=== PATIENT | male | born 1965 | race Caucasian/White ===

== ENCOUNTER 2018-02-14 18:15 | Emergency (ER) | payer OTHER, SELFPAY ==
[2018-02-14 18:16] VITALS: BP 157/108; PULSE 86; RESP 14; TEMP 36.4; BMI 38.9
[2018-02-14 19:13] LABS: Absolute Lymphocyte Count 2.13 X10^3/ul (0.83-4.51); Absolute Neutrophil Count 7.1 X10^3/uL (2.0-7.7); Basophil# 0.04 X10^3/uL; Basophil% 0.4 % (0-1); Eosinophil# 1.44 X10^3/uL; Eosinophils% 12.7 % (0-5); Hematocrit 46.5 % (40-54); Hemoglobin 16.2 g/dl (13.0-16.5); Lymphocyte # 2.13 X10^3/ul (4.0); Lymphocyte % 18.8 % (19-41); Mean Corp Hgb Conc 34.8 g/gl (32-36); Mean Corpuscular Hgb 30.7 pg (27.0-32.0); Mean Corpuscular Volume 88.1 fL (80-94); Mean Platelet Vol. 11.4 fl (6.2-12.0); Monocyte# 0.63 X10^3/uL; Monocyte% 5.6 % (0-10); Neutrophil # 7.05 X10^3/uL (2.7-7.7); Neutrophil % 62.3 % (47-70); Platelet Count 184 K/mm3 (150-450); RBC Distribution Width CV 11.8 % (11.6-14.6); RBC Distribution Width SD 37.3 fl (35.1-43.9); Red Blood Count 5.28 M/mm3 (4.6-6.2); White Blood Count 11.3 K/mm3 (4.4-11.0)
[2018-02-14 19:15] LABS: POSITIVE COUNT NO; POSITIVE DIFFERENTIAL NO; POSITIVE MORPHOLOGY NO
[2018-02-14 19:20] LABS: Anion Gap 7 (5-15); BUN 11 mg/dL (7-18); BUN/Creat Ratio 9.9 RATIO (10-20); Calcium,Total 8.5 mg/dL (8.5-10.1); Chloride 107 mmol/L (98-107); Creatinine, Serum 1.11 mg/dL (0.70-1.30); EST Glomerular Filtration Rate 74 mL/min (>60); Est Glom Filt Rate - Afr Amer 90 mL/min (>60); Estimated Creatinine Clearance 74.44 ml/min; Glucose 129 mg/dL (74-106); Potassium 3.8 mmol/L (3.5-5.1); Sodium Level 139 mmol/L (136-145)
--- NOTE | 2018-02-14 20:15 | ED.VISSUMM ---
- ER Visit Summary Date of Service: 02/14/18 Chief Complaint: Rash History of Present Illness: The patient is a 52 M who presents with rash. Initially started on extremities. He now has rash on his anterior left chest. The rash is not pruritic. It is red. He states the rash on his forearm is very warm. He denies fever, chills night sweats. He denies ocular, visual auditory symptoms. He denies any cardiac or respiratory symptoms. He denies nausea vomiting or diarrhea. He denies any urologic symptoms. Denies myalgias arthralgias. He denies any exposures or tick bite. He states he has not been in a hot tub recently. Physical Examination: Blood pressure elevated 157/108. He is afebrile. Patient has a erythematous indurated warm rash volar surface left forearm. There is also evidence of folliculitis right upper extremity with patchy rash as well that is erythematous warm and indurated. There is no discharge or drainage noted. There is no fluctuance. There is no epitrochlear extra lymphadenopathy. There is an erythematous rash noted over the left pectoral region. Lower extremity exam is remarkable folliculitis. Test Results: White count is slightly elevated 11.3 thousand. There is no shift or bandemia. Electronic panel is unremarkable. Emergency Department Course and Treatment: To evaluate patient's rash CBC BMP was obtained. He was treated with 3.0 g of Unasyn. Treatment Plan: Prescription for clindamycin 300 mg 4 times daily ?7 days. Disposition: Discharged to home Impression: 1. Cellulitis left forearm 2. Folliculitis This note was generated with [employer] dictation software. It may contain incorrect words, spelling, and punctuation that were not noted in review of the chart prior to signing ED Disposition - Plan for ED Patient: Disposition: Home or Assisted Living Chief Complaint: Rash Instructions: ED Infec Skin Cellulitis, ED Folliculitis Prescriptions: Clindamycin HCl 300 mg PO 4X/DAY #30 cap Referrals: Constantino Chavez MD [Primary Care Provider] - 2 Days for wound check
[2018-02-14 20:29] VITALS: PULSE 95; RESP 16; O2SAT 98
== END 2018-02-14 20:31 | disposition home or self-care (01) ==
PROVIDERS: Emergency Provider Emergency Medicine; Family Provider Family Medicine; PCP Family Medicine
DX: L03.114 Cellulitis of left upper limb (principal); L73.9 Follicular disorder, unspecified
CPT/HCPCS: 80048; 85025; 99283; A4216; J0295

== ENCOUNTER → 2019-02-16 | Outpatient (CLI) | payer OTHER, SELFPAY ==
--- NOTE | 2019-02-16 11:25 | RAD_ITS ---
STUDY: X-RAY - RIGHT KNEE REASON FOR EXAM: Male, 53 years old. Pain TECHNIQUE: 4 view(s) of the knee. COMPARISON: None. FINDINGS: Normal visualized distal femur. Normal visualized proximal tibia and fibula. Normal proximal tibiofibular articulation. Mild degenerative spurring at the medial femorotibial compartment. Normal lateral femorotibial compartment. Mild degenerative spurring at the patellofemoral articulation. Trace suprapatellar effusion. The soft tissue structures are unremarkable. RAD/Knee 4 or More Views IMPRESSION: Mild degenerative changes of the knee. Electronically Signed: Ye Melvin DO at 23:57 EDT Tel [phone], Service support ,
--- NOTE | 2019-02-16 11:26 | RAD_ITS ---
STUDY: X-RAY - RIGHT WRIST REASON FOR EXAM: Male, 53 years old. Pain TECHNIQUE: 3 view(s) of the wrist were obtained. COMPARISON: None. FINDINGS: Normal visualized distal radius and ulna. Normal radiocarpal articulation. Normal distal radioulnar articulation. Normal carpal bones. Normal carpal articulations. Normal carpometacarpal articulation of the thumb. Normal second through fifth carpometacarpal articulations. Normal visualized metacarpal bones. The soft tissue structures are unremarkable. RAD/Wrist min 3 Views IMPRESSION: Normal x-ray examination of the wrist. Electronically Signed: Ye Melvin DO at 23:52 EDT Tel [phone], Service support ,
== END | disposition home or self-care (01) ==
LOC: MTRAD 11:23
PROVIDERS: Family Provider Family Medicine; PCP Family Medicine; Referring Provider Family Medicine; Visit Provider Family Medicine
DX: M25.531 Pain in right wrist (principal); M25.561 Pain in right knee
CPT/HCPCS: 73110; 73564

== ENCOUNTER → 2020-04-05 | Outpatient (CLI) | payer OTHER, SELFPAY | END | disposition home or self-care (01) | LOC: MFPLAB 15:47 | PROVIDERS: PCP Family Medicine; Referring Provider Family Medicine; Visit Provider Family Medicine | DX: Z00.00 Encounter for general adult medical examination without abnormal findings (principal) ==

== ENCOUNTER → 2020-11-14 15:58 | Outpatient (CLI) | payer OTHER, SELFPAY ==
[2020-11-14 18:57] LABS: Anion Gap 6 (5-15); BUN 13 mg/dL (7-18); Calcium,Total 8.8 mg/dL (8.5-10.1); Chloride 108 mmol/L (98-107); Cholesterol 206 mg/dL (200); Creatinine, Serum 1.08 mg/dL (0.70-1.30); EST Glomerular Filtration Rate 76 mL/min (>60); Est Glom Filt Rate - Afr Amer 92 mL/min (>60); Glucose 104 mg/dL (74-106); High Density Lipoprotein 36 mg/dL; PSA,Total - Annual Screen 2.04 ng/mL (0.00-4.00); Potassium 3.7 mmol/L (3.5-5.1); Sodium Level 140 mmol/L (136-145); Triglycerides 245 mg/dL; Very Low Density Lipoprotein 49 mg/dL (5-40)
== END ==
PROVIDERS: PCP Family Medicine; Referring Provider Family Medicine; Visit Provider Family Medicine
DX: Z13.1 Encounter for screening for diabetes mellitus (principal); Z12.5 Encounter for screening for malignant neoplasm of prostate; Z13.220 Encounter for screening for lipoid disorders
CPT/HCPCS: 36415; 80048; 80061; 84153; G0103

== ENCOUNTER → 2022-02-14 | Outpatient (CLI) | payer BC, SELFPAY ==
--- NOTE | 2022-02-14 11:22 | RAD_ITS ---
STUDY: X-RAY - LEFT KNEE REASON FOR EXAM: Male, 56 years old. Knee pain. TECHNIQUE: 4 weightbearing view(s) of the knee. COMPARISON: None. FINDINGS: Normal visualized distal femur. Normal visualized proximal tibia and fibula. Normal proximal tibiofibular articulation. Moderate medial compartmental arthrosis. Mild arthrosis of the lateral compartment. Lateral tilt of the patella with mild arthrosis of the patellofemoral compartment. The soft tissue structures are unremarkable. RAD/Knee 4 or More Views IMPRESSION: Tricompartmental arthrosis as described. No acute abnormality, chondrocalcinosis, erosive changes or periostitis. Electronically Signed: Juan Diego Ramirez MD at 13:26 EDT ,
== END | disposition home or self-care (01) ==
PROVIDERS: PCP Family Medicine; Referring Provider Family Medicine; Visit Provider Family Medicine
DX: M25.562 Pain in left knee (principal)
CPT/HCPCS: 73564

== ENCOUNTER → 2022-10-02 | Outpatient (CLI) | payer OTHER, SELFPAY ==
[2022-10-02 10:32] LABS: Anion Gap 6 (5-15); BUN 10 mg/dL (7-18); BUN/Creat Ratio 11.4 RATIO (10-20); Calcium,Total 9.3 mg/dL (8.5-10.1); Chloride 103 mmol/L (98-107); Cholesterol 216 mg/dL (200); Creatinine, Serum 0.88 mg/dL (0.70-1.30); EST Glomerular Filtration Rate 96 mL/min (>60); Est Glom Filt Rate - Afr Amer 116 mL/min (>60); Glucose 122 mg/dL (74-106); High Density Lipoprotein 31 mg/dL; PSA,Total - Annual Screen 3.64 ng/mL (0.00-4.00); Potassium 3.8 mmol/L (3.5-5.1); Sodium Level 139 mmol/L (136-145); Triglycerides 510 mg/dL
== END | disposition home or self-care (01) ==
PROVIDERS: PCP Family Medicine; Referring Provider Family Medicine; Visit Provider Family Medicine
DX: Z13.1 Encounter for screening for diabetes mellitus (principal); Z13.220 Encounter for screening for lipoid disorders; Z12.5 Encounter for screening for malignant neoplasm of prostate
CPT/HCPCS: 36415; 80048; 80061; 84153; G0103

== ENCOUNTER → 2024-12-20 | Outpatient (CLI) | payer BC, SELFPAY ==
--- NOTE | 2024-12-20 11:40 | RAD_ITS ---
EXAM: XR Lumbosacral Spine, 4 or 5 Views CLINICAL INDICATION: TECHNIQUE: Frontal, lateral and bilateral oblique views of the lumbar spine. COMPARISON: No relevant prior studies available. FINDINGS: VERTEBRAE: Mild facet arthropathy of L4-S1. No acute fracture. Normal alignment. SACRUM/COCCYX: Unremarkable as visualized. No acute fracture. DISC SPACES: No acute findings. No significant narrowing. SOFT TISSUES: Unremarkable. RAD/L/S Spine w Bend Min 6 Vw IMPRESSION: No acute findings in the lumbar spine. Reading Location: [facility]
== END | disposition home or self-care (01) ==
LOC: MTRAD 11:40
PROVIDERS: PCP Family Medicine; Referring Provider Family Medicine; Visit Provider Family Medicine
DX: M54.41 Lumbago with sciatica, right side (principal)
CPT/HCPCS: 72114

== ENCOUNTER 2025-03-04 14:32 | Emergency (ER) | payer BC, SELFPAY ==
[2025-03-04 14:32] VITALS: BP 137/93; PULSE 95; RESP 15; TEMP 36.6; O2SAT 95; BMI 38.9
--- NOTE | 2025-03-04 14:50 | CT_ITS ---
EXAM: CT Abdomen and Pelvis With Intravenous Contrast CLINICAL INDICATION: R GROIN PAIN TECHNIQUE: Axial computed tomography images of the abdomen and pelvis with intravenous contrast. This CT exam was performed using one or more of the following dose reduction techniques: automated exposure control, adjustment of the mA and/or kV according to patient size, and/or use of iterative reconstruction technique. COMPARISON: No relevant prior studies available. FINDINGS: LUNG BASES: Unremarkable. No mass. No consolidation. MEDIASTINUM: Small esophageal hiatal hernia. ABDOMEN: LIVER: Hepatomegaly with fatty infiltration. GALLBLADDER AND BILE DUCTS: Cholelithiasis. No ductal dilation. PANCREAS: Unremarkable. No mass. No ductal dilation. SPLEEN: Unremarkable. No splenomegaly. ADRENALS: Unremarkable. No mass. KIDNEYS AND URETERS: Unremarkable. No stones within either kidney. No hydronephrosis. STOMACH AND BOWEL: Unremarkable. No obstruction. No mucosal thickening. PELVIS: APPENDIX: No findings to suggest acute appendicitis. BLADDER: Unremarkable. No mass. REPRODUCTIVE: The prostate gland measures 4.0 cm in maximum dimension. ABDOMEN and PELVIS: INTRAPERITONEAL SPACE: Unremarkable. No free air. No significant fluid collection. BONES/JOINTS: No acute fracture. No dislocation. SOFT TISSUES: Umbilical hernia containing fat. Inguinal hernias, bilaterally. VASCULATURE: Unremarkable. No abdominal aortic aneurysm. LYMPH NODES: Unremarkable. No enlarged lymph nodes. CT/Abdomen/Pelvis W IV Cont ONLY IMPRESSION: 1. Small esophageal hiatal hernia. 2. Hepatomegaly with fatty infiltration. 3. Cholelithiasis. 4. Umbilical hernia containing fat. 5. Inguinal hernias, bilaterally. 6. No obstructive uropathy. Reading Location: [id number]
[2025-03-04] MEDS: Ketorolac 15 MG/ML Vial IV (15:03)
--- NOTE | 2025-03-04 15:07 | EX.ED.DYSGE1 ---
HPI <JOSE ROBERTO Flor - Last Filed: 03/04/25 17:12> History of Present Illness Chief Complaint: Other, Pain/Inj Narrative Narrative: Patient presenting today with pain to his right groin he has had over the last 2 months. He reports pain is worse with range of motion of his right hip, especially with abducting. He has seen his PCP for this, he referred him to Dr. Cadet due to suspicions for an inguinal hernia, he saw him in the office an ordered an outpatient CT scan of the pelvis with IV contrast, this is not scheduled until 03/16. He reports that he had an outpatient ultrasound performed yesterday to assess for hernia, he reports that they told him there was no obvious abnormality seen on the ultrasound but now his pain is worse after having the ultrasound probe pressing against the area, prompting him to come in to be seen. He reports daily bowel movements. He denies any stool changes, urinary symptoms, fevers, and chills. He has no history of previous abdominal surgery or hernias. PFSH <JOSE ROBERTO Flor - Last Filed: 03/04/25 17:12> [facility] Medical History Right groin pain Allergies HTN (hypertension) GERD (gastroesophageal reflux disease) Depression Home Medications ?Medication ?Instructions ?Recorded ?Last Taken ?Type quetiapine 150 mg tablet,extended 150 mg PO QHS 02/14/18 Unknown History release 24 hr (Seroquel XR) sertraline 100 mg tablet 100 mg PO DAILY 02/14/18 Unknown History fexofenadine 60 mg-pseudoephedrine 1 tab PO Q12H PRN 02/24/25 Unknown History ER 120 mg tablet,ext.release,12 hr (Anum-D 12 Hour) lisinopril 10 mg tablet 10 mg PO QDAY 02/24/25 Unknown History omeprazole 20 mg capsule,delayed 20 mg PO QDAY 02/24/25 Unknown History release Allergy/AdvReac Type Severity Reaction Status Date / Time bee venom protein (honey bee) Allergy Shortness Verified 03/04/25 14:36 of breath pollen extracts Allergy Rash Verified 03/04/25 14:36 Surgical History S/P vasectomy Social History Smoking Status: Never smoker alcohol intake: current ROS <JOSE ROBERTO Flor - Last Filed: 03/04/25 17:12> ROS ED Constitutional Constitutional ED: Denies chills or fever(s) Cardiovascular Cardiovascular: Denies chest pain Respiratory/Chest Respiratory/Chest: Denies dyspnea Gastrointestinal Gastrointestinal: Denies abdominal pain, constipation, diarrhea, nausea or vomiting Genitourinary Genitourinary ED: Denies dysuria, hematuria or urinary urgency Musculoskeletal Musculoskeletal: Reports other Details: Right groin pain Integumentary Denies rash Neurologic Neurologic: Denies paresthesias EXAM <JOSE ROBERTO Flor - Last Filed: 03/04/25 17:12> Physical Exam Const Vital Signs: 03/04/25 14:32 03/04/25 14:43 03/04/25 16:18 Temperature 97.9 F 97.9 F Temperature Source Temporal Pulse Rate 95 84 Respiratory Rate 15 16 Respiratory Effort Normal Non-Labored Respiratory Pattern Normal Blood Pressure 137/93 H 144/95 H Blood Pressure Mean 107 111 Pulse Ox 95 96 Oxygen Delivery Method Room Air Positive well nourished, well developed and no apparent distress General Appearance ED: well developed HEENT Reports normocephalic and head/scalp atraumatic Mouth ED: Yes moist mucous membranes normal Eyes PERRL and EOMs intact bilaterally Neck full ROM and supple Chest Wall inspection of chest normal Resp normal respiratory effort and clear to auscultation bilaterally Cardio regular rate and regular rhythm GI soft to palpation, non-tender, non-distended and no masses Narrative: Tenderness to the right mid groin, no obvious hernia palpated, no overlying rash or lesions Back/Spine normal ROM and normal to inspection Extremity normal to inspection and full ROM Extremity Narrative: Pain to palpation to the right groin with right hip abduction, negative logroll on the right, no pain to palpation to the right hip Neuro oriented x3, CN's II-XII intact bilaterally, moves all extremities, no focal motor deficits and no sensory deficits noted Sensorium / Orientation: awake and alert Psych mental status grossly normal and thought process normal Skin no rashes or lesions noted and no wounds <Dr. León Howard DO - Last Filed: 03/04/25 22:25> Physical Exam Const Vital Signs: 03/04/25 14:32 03/04/25 14:43 03/04/25 16:18 Temperature 97.9 F 97.9 F Temperature Source Temporal Pulse Rate 95 84 Respiratory Rate 15 16 Respiratory Effort Normal Non-Labored Respiratory Pattern Normal Blood Pressure 137/93 H 144/95 H Blood Pressure Mean 107 111 Pulse Ox 95 96 Oxygen Delivery Method Room Air [facility] <JOSE ROBERTO Flor - Last Filed: 03/04/25 17:12> [facility] Narrative Medical decision making narrative: Patient presenting with pain to the right groin that has been ongoing for about 2 months. It was starting to get somewhat better after he started a course of steroids but then he participated in [employer] and the pain worsened again. He has seen Dr. Cadet, he ordered an outpatient CT scan which is scheduled for the . His PCP had him undergo a outpatient ultrasound of the groin yesterday which according to the patient was unremarkable. He reports that the ultrasound probe worsened his pain prompting him to come in to be seen. He has no overlying rash or lesions on exam, no obvious hernia on exam. CT scan of the abdomen pelvis with IV contrast will be obtained to assess for hernia and other abnormality. He was given Toradol here for pain. Labs reveal mild leukocytosis at 12.1, glucose 188, otherwise labs are unremarkable. CT scan shows bilateral inguinal hernias as well as a small hiatal hernia and fatty liver. He is doing well on reexamination. Recommended he follow-up with Dr. Cadet to discuss possible surgical repair. He reports that steroids did help him in the past and he does have a prescription of these to take if needed. Return instructions were discussed with him and patient discharged home in stable condition. Lab Data Attestation: I reviewed the patient's lab results. Labs: Laboratory Results - last 24 hr 03/04/25 15:00 WBC 12.1 H RBC 5.17 Hgb 15.5 Hct 43.6 MCV 84.3 MCH 30.0 MCHC 35.6 RDW Std Deviation 35.7 RDW Coeff of Alan 11.8 Plt Count 169 MPV 11.4 Immature Gran % (Auto) 0.700 Neut % (Auto) 64.2 Lymph % (Auto) 16.4 L [place] % (Auto) 6.9 Eos % (Auto) 11.1 H Baso % (Auto) 0.7 Absolute Neuts (auto) 7.8 H Absolute Lymphs (auto) 1.98 Nucleated RBC % 0 Sodium 138 Potassium 4.1 Chloride 103 Carbon Dioxide 23.2 Anion Gap 12 BUN 10 Creatinine 1.10 Estim Creat Clear Calc 88.91 Est GFR (MDRD) Non-Af 78 BUN/Creatinine Ratio 8.9 L Glucose 188 H Calcium 9.4 Radiography Diagnostic Testing: Clinical Impression(s) from Imaging Studies Abdomen/Pelvis CT 03/04/25 14:50 IMPRESSION: 1. Small esophageal hiatal hernia. 2. Hepatomegaly with fatty infiltration. 3. Cholelithiasis. 4. Umbilical hernia containing fat. 5. Inguinal hernias, bilaterally. 6. No obstructive uropathy. Reading Location: [id number] <Dr. León Howard, DO - Last Filed: 03/04/25 22:25> [facility] Narrative Medical decision making narrative: Patient presenting with pain to the right groin that has been ongoing for about 2 months. It was starting to get somewhat better after he started a course of steroids but then he participated in [employer] and the pain worsened again. He has seen Dr. Cadet, he ordered an outpatient CT scan which is scheduled for the . His PCP had him undergo a outpatient ultrasound of the groin yesterday which according to the patient was unremarkable. He reports that the ultrasound probe worsened his pain prompting him to come in to be seen. He has no overlying rash or lesions on exam, no obvious hernia on exam. CT scan of the abdomen pelvis with IV contrast will be obtained to assess for hernia and other abnormality. He was given Toradol here for pain. Labs reveal mild leukocytosis at 12.1, glucose 188, otherwise labs are unremarkable. CT scan shows bilateral inguinal hernias as well as a small hiatal hernia and fatty liver. He is doing well on reexamination. Recommended he follow-up with Dr. Cadet to discuss possible surgical repair. He reports that steroids did help him in the past and he does have a prescription of these to take if needed. Return instructions were discussed with him and patient discharged home in stable condition. Attending note: I have personally performed a face to face assessment of the patient and have reviewed the GISSELL note. I personally made/approved the management plan and take responsibility for the patient management. I performed a substantive portion of the visit including all aspects of the following. My [place] findings include: Pain right groin on over last 2 months had transient relief with steroids. 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 PCP seen twice concerns for hernia referred to general surgery could not palpate this. Had ultrasound taken yesterday to try to evaluate for this as difficulty with insurance approval. There is a schedule CT scan later this month. However due to worsening pain came here. Normal bowel movements. No urinary symptoms. Exam no palpable hernia or bulging noted. CT scan however did note bilateral inguinal hernias just nonobstructing. Large on the left side on my review. With improved symptoms with steroids in the past he had a refill at the pharmacy for which she will sisal picker. He will follow-up with surgery for outpatient evaluation. Lab Data Labs: Laboratory Results - last 24 hr 03/04/25 15:00 WBC 12.1 H RBC 5.17 Hgb 15.5 Hct 43.6 MCV 84.3 MCH 30.0 MCHC 35.6 RDW Std Deviation 35.7 RDW Coeff of Alan 11.8 Plt Count 169 MPV 11.4 Immature Gran % (Auto) 0.700 Neut % (Auto) 64.2 Lymph % (Auto) 16.4 L [place] % (Auto) 6.9 Eos % (Auto) 11.1 H Baso % (Auto) 0.7 Absolute Neuts (auto) 7.8 H Absolute Lymphs (auto) 1.98 Nucleated RBC % 0 Sodium 138 Potassium 4.1 Chloride 103 Carbon Dioxide 23.2 Anion Gap 12 BUN 10 Creatinine 1.10 Estim Creat Clear Calc 88.91 Est GFR (MDRD) Non-Af 78 BUN/Creatinine Ratio 8.9 L Glucose 188 H Calcium 9.4 Radiography Diagnostic Testing: Clinical Impression(s) from Imaging Studies Abdomen/Pelvis CT 03/04/25 14:50 IMPRESSION: 1. Small esophageal hiatal hernia. 2. Hepatomegaly with fatty infiltration. 3. Cholelithiasis. 4. Umbilical hernia containing fat. 5. Inguinal hernias, bilaterally. 6. No obstructive uropathy. Reading Location: [id number] Discharge Plan Triage Chief Complaint: Other, Pain/Inj ED Midlevel Provider: Elizabeth Mcknight ED Provider: León Howard Dx/Rx/DC Orders Clinical Impression: Bilateral inguinal hernia, Right groin pain Instructions: ED Hernia (Adult) Prescriptions: No Action omeprazole 20 mg capsule,delayed release(DR/EC) 20 mg PO QDAY lisinopril 10 mg tablet 10 mg PO QDAY fexofenadine-pseudoephedrine [Anum-D 12 Hour] 60-120 mg tablet extended release 12 hr 1 tab PO Q12H PRN sertraline 100 MG tablet 100 mg PO DAILY quetiapine [Seroquel XR] 150 MG tablet extended release 24 hr 150 mg PO QHS Primary Care Provider: Matthew Chavez Referrals: Rojas Cadet MD [Med Staff - Active Staff] - 5-7 Days Matthew Chavez MD [Primary Care Provider] - Activity Restrictions/Additional Instructions: Follow-up with Dr. Cadet, return for any worsening symptoms. Print Language: Irish Disposition Disposition: Home, Self Care Discharge Date/Time: 03/04/25 16:19
[2025-03-04 15:10] LABS: Absolute Lymphocyte Count 1.98 X10^3/uL (0.83-4.51); Absolute Neutrophil Count 7.8 X10^3/uL (2.0-7.7); Basophil# 0.08 X10^3/uL; Basophil% 0.7 % (0-1); Eosinophil# 1.34 X10^3/uL; Eosinophils% 11.1 % (0-5); Hematocrit 43.6 % (40-54); Hemoglobin 15.5 g/dL (13.0-16.5); Lymphocyte # 1.98 X10^3/ul (0.83-4.51); Lymphocyte % 16.4 % (19-41); Mean Corp Hgb Conc 35.6 g/dL (32-36); Mean Corpuscular Volume 84.3 fL (80-94); Mean Platelet Vol. 11.4 fl (6.2-12.0); Monocyte# 0.83 X10^3/uL; Monocyte% 6.9 % (0-10); NRBC Flagged by Analyzer 0 % (0-5); Neutrophil # 7.79 X10^3/uL (2.7-7.7); Neutrophil % 64.2 % (47-70); Platelet Count 169 K/mm3 (150-450); RBC Distribution Width CV 11.8 % (11.6-14.6); RBC Distribution Width SD 35.7 fl (35.1-43.9); Red Blood Count 5.17 M/mm3 (4.6-6.2); White Blood Count 12.1 K/mm3 (4.4-11.0)
[2025-03-04 15:25] LABS: Anion Gap 12 (5-15); BUN 10 mg/dL (4-19); BUN/Creat Ratio 8.9 RATIO (10-20); Calcium,Total 9.4 mg/dL (7.6-11.0); Carbon Dioxide 23.2 mmol/L (21.0-32.0); Chloride 103 mmol/L (98-108); EST Glomerular Filtration Rate 78 (>60); Estimated Creatinine Clearance 88.91 ml/min (50-250); Glucose 188 mg/dL (70-99); Potassium 4.1 mmol/L (3.3-5.1); Sodium Level 138 mmol/L (133-145)
[2025-03-04 16:18] VITALS: BP 144/95; PULSE 84; RESP 16; TEMP 36.6; O2SAT 96
== END 2025-03-04 16:19 | disposition home or self-care (01) ==
PROVIDERS: Physician Assistant; Emergency Provider Emergency Medicine; PCP Family Medicine; Referring Provider Emergency Medicine; Visit Provider Emergency Medicine
DX: K40.20 Bilateral inguinal hernia, without obstruction or gangrene, not specified as recurrent (principal)
CPT/HCPCS: 74177; 80048; 85025; 96374; 96376; 99283; Q9967; A4216

== ENCOUNTER 2025-04-03 06:08 | Day surgery (SDC) | payer BC, SELFPAY ==
--- NOTE | 2025-03-31 11:54 | PAT.ANE_ITS ---
Pre-Assessment Diagnosis/Proposed Procedure Planned Operative Procedure(s): LAP ROBOTIC INGUINAL HERNIA REPAIR BILAT WITH MESH Anesthesia History Anesthesia History - hospitality services manager: Anesthesia History - hospitality services manager Hx Hospitalization No 03/23/25 16:34 Any Problems With Anesthesia No 03/23/25 16:34 Cholinesterase deficiency No 03/23/25 16:34 You/Your Family Experience No 03/23/25 16:34 fever (hyperthermia) with Relationship Recent Exposure to Contagious Disease Does patient have nerve No 03/23/25 16:34 stimulator Patient instructed to have device shut off --Does patient have Pacemaker or ICD? When Was Last Pacemaker Check QUESTION #4 FULL TEXT: You/Your Family Experience fever (hyperthermia) with Anesthesia Last Oral Intake Last Oral intake: Last Oral Intake NPO since Meds taken in AM with sips of water? Meds patient instructed to take am of surgery PONV PONV - hospitality services manager: PONV - hospitality services manager Female No 03/23/25 16:34 HX of Motion Sickness No 03/23/25 16:34 HX of N/V After Surgery No 03/23/25 16:34 Non-Smoker Yes 03/23/25 16:34 Duration of Surgery greater Yes 03/23/25 16:34 than 60 minutes Number of Risk Factors 2 03/23/25 16:34 PONV Score Moderate Risk 03/23/25 16:34 Height & Weight Height & Weight: Anesthesia: Height & Weight Height 5 ft 7 in 03/10/25 13:45 Respiratory Assessment Respiratory Assessment - hospitality services manager: Respiratory Tract Infection Hx - hospitality services manager Hx Respiratory Tract Infection No 03/23/25 16:34 STOP Sleep Apnea STOP Sleep Apnea - hospitality services manager: STOP Sleep Apnea - hospitality services manager Hx Hypertension Yes: CONTROLLED WITH MED 03/23/25 16:34 Hx Sleep Apnea Yes 03/23/25 16:34 CPAP Yes 03/23/25 16:34 BIPAP No 03/23/25 16:34 Do you snore loudly (louder than talking or can be heard Do you often feel tired/ fatigued/ sleepy during daytime? Has anyone observed you stop breathing during sleep? STOP Results Positive 03/23/25 16:34 QUESTION #5 FULL TEXT : Do you snore loudly (louder than talking or can be heard through closed doors)? Tobacco Use History Tobacco Use History - hospitality services manager: Tobacco Use History - hospitality services manager Tobacco Use Smoking Status Former smoker 03/23/25 16:34 Hx Tobacco Use Yes 03/23/25 16:34 Years Smoking Packs Smoked per Day Smoking Cessation Date was Yes - quit smoking within 15 03/23/25 16:34 within the last 15 years years Hx Smoking Cessation Date 10/19/24 03/23/25 16:34 Hx Smoking Cessation Counseling Hematologic Medial History Hematologic Hx - hospitality services manager: Hematologic Medical Hx - residential treatment counselor Hx of Blood Transfusion No 03/23/25 16:34 Hx of Transfusion in last 3 No 03/23/25 16:34 Months Date of Last Transfusion (if within last 3 months) Ever experience any problems No 03/23/25 16:34 with transfusion(s)? Specify any problems Hx of Preganancy in last 3 N/A 03/23/25 16:34 Months Nurse Filling Out Transfusion DSCHRIBER 03/23/25 16:34 & Questions: Date: 03/23/25 03/23/25 16:34 Time: 16:35 03/23/25 16:34 Patient unable to answer at this time (ie. confused, unrespo /Reproduction History /Reproductive History - hospitality services manager: /Reproductive Hx- hospitality services manager Hx Now No 03/23/25 16:34 Gestational Age (in weeks): EDC: Hx Hx Para Hx Section SAB No 03/23/25 16:34 Active Medications Active Medications: Current Medications Generic Name Dose Route Start Last Admin Trade Name Freq PRN Reason Stop Dose Admin Cefazolin Sodium 2 gm/ Sodium 110 mls @ 150 mls/hr 04/03/25 07:30 Chloride IV 04/03/25 08:13 INTRAOP ONE COUNTS INCLUDE 234 BEDS AT THE [facility] Medical History (Updated 03/23/25 @ 16:42 by Stefanie Rosa) Wears glasses Alcohol use Arthritis Fatty liver Migraine headache History of hiatal hernia History of ulceration Chewing tobacco dependence CPAP (continuous positive airway pressure) dependence Shortness of breath on exertion Leg cramps History of pain when walking Cholelithiasis Bilateral inguinal hernia Right groin pain HTN (hypertension) GERD (gastroesophageal reflux disease) Depression Home Medications ?Medication ?Instructions ?Recorded ?Last Taken ?Type quetiapine 150 mg tablet,extended 150 mg PO QHS Unknown History release 24 hr (Seroquel XR) sertraline 100 mg tablet 150 mg PO DAILY 02/14/18 Unk nown History fexofenadine 60 mg-pseudoephedrine 1 tab PO Q12H PRN a llergy symptoms 02/24/25 Unknown History ER 120 mg tablet,ext.release,12 hr (Anum-D 12 Hour) lisinopril 10 mg tablet 10 mg PO QDAY 02/24/25 Unkno wn History omeprazole 20 mg capsule,delayed 20 mg PO QDAY 5 Unknown History release Allergy/AdvReac Type Severity Reaction Status Date / Time bee venom protein (honey bee) Allergy Shortness Verified 03/23/25 16:31 of breath pollen extracts Allergy Rash Verified 03/23/25 16:31 Surgical History (Updated 03/23/25 @ 16:42 by Stefanie Rosa) Hx of colonoscopy S/P vasectomy Social History Smoking Status: Former smoker alcohol intake: current Audit: Pertinent Findings Pertinent Findings EKG Perinent findings: Pending. Recommendation Anesthesia Recommendation Anesthesia recommendation: OPTIMIZED for anesthesia
[2025-04-03] VITALS (13 sets, daily range): BP systolic 126–174; BP diastolic 80–113; PULSE 91–106; RESP 16–20; TEMP 36.4–37; O2SAT 91–100; BMI 38.9
--- OUTSIDE RECORDS SUMMARY | 2025-04-03 06:11 | XMS RPT_ITS | CCD ---
Author Organization [facility] Care Team Providers Care Forester Silviculture Name Role Phone Kathy VARMA, Dr. Starkey Primary Care Provider Kathy VARMA, Dr. Starkey Attending Provider Kathy VARMA, Dr. Starkey Referring Provider [phone] KATHY VARMA, DR STARKEY Primary Care Physician Chichi VARMA, Dr. Xie Attending Provider Dr. León Howard DO Referring Provider [phone] León Howard DO Emergency Provider KATHY VARMA, DR STARKEY Attending Brittney CHAVEZ MD, DR STARKEY Primary Care Rojas Plummer Attending Unavailable Jaky Chavez Primary Care Unavailable Jaky Chavez Referring Unavailable Rojas Cadet Attending Unavailable Jaky Chavez Referring Unavailable Jaky Chavez Primary Care Unavailable Rojas Cadet Attending Unavailable Rojas Cadet Referring Unavailable Jaky Chavez Primary Care Unavailable Jaky Chavez Primary Care Unavailable Jaky Chavez Attending Unavailable Jaky Chavez Referring Unavailable León Howard Attending Unavailable León Howard Referring Unavailable Jaky Chavez Primary Care Unavailable Rjoas Cadet Attending Unavailable Rojas Cadet Referring Unavailable Jaky Chavez Primary Care Unavailable Allergies Allergy Classification Reported Allergen(s) Allergy Type Date of Onset Reaction(s) Facility (4 sources) Pollen Allergy to substance 8 Rash [facility] (4 sources) bee venom protein (honey bee) Allergy to substance 8 Shortness of breath [facility] (1 source) Pollen Drug allergy (disorder) 5 [facility] Repository (1 source) bee venom protein (honey bee) Drug allergy (disorder) 5 [facility] Repository Medications Current Medications Medication Drug Class(es) Dates Sig (Normalized) Sig (Original) 12 hr fexofenadine hydrochloride 60 mg / pseudoephedrine hydrochloride 120 mg extended release oral tablet (1 source) alpha-Adrenergic Agonist, Histamine-1 Receptor Antagonist Start: 02-24-2025 take 1 tablet by mouth every twelve hours as needed Fexofenadine-Pse udoephedrine (Anum-D 12 Hour) 60-120 mg tablet extended release 12 hr Active 1 {tbl} PO Q12H as needed February 24, 2025 12:00am lisinopril 10 mg oral tablet (1 source) Angiotensin Converting Enzyme Inhibitor Start: 02-24-2025 take 1 tablet by mouth once daily Lisinopril 10 mg tablet Active 10 mg PO daily February 24, 2025 12:00am omeprazole 20 mg delayed release oral capsule (1 source) Proton Pump Inhibitor Start: 02-24-2025 take 1 capsule by mouth once daily Omeprazole 20 mg capsule,delayed release(DR/EC) Active 20 mg PO daily February 24, 2025 12:00am 24 hr QUEtiapine 150 mg extended release oral tablet (4 sources) Atypical Antipsychotic Start: 02-14-2018 take 1 tablet by mouth every twenty-four hours at bedtime Quetiapine (Seroquel Xr) 150 MG tablet extended release 24 hr Active 150 mg PO AT BEDTIME February 14, 2018 12:00am sertraline 100 mg oral tablet (4 sources) Serotonin Reuptake Inhibitor Start: 02-14-2018 take 1 tablet by mouth once daily Sertraline 100 MG tablet Active 100 mg PO DAILY February 14, 2018 12:00am Completed/Discontinued Medications Medication Drug Class(es) Dates Sig (Normalized) Sig (Original) clindamycin 300 mg oral capsule (4 sources) Lincosamide Antibacterial Start: 02-14-2018 End: 02-24-2025 take 1 capsule by mouth four times daily Clindamycin Hcl 300 MG capsule Discontinued 300 mg PO 4 TIMES DAILY February 14, 2018 12:00am February 24, 2025 2:12pm Problems Problem Classification Problem Date Documented Date Episodic/Chronic Abdominal hernia (2 sources) Bilateral inguinal hernia; Translations: [Bilateral inguinal hernia, without obstruction or gangrene, not specified as recurrent] Onset: 03-10-2025 03-04-2025 Episodic Abdominal pain (5 sources) Right inguinal pain; Translations: [Right lower quadrant pain] Onset: 03-09-2025 02-24-2025 Episodic Allergic reactions (1 source) Allergic condition; Translations: [Allergy, unspecified, initial encounter] 02-24-2025 Episodic Esophageal disorders (1 source) Gastroesophageal reflux disease; Translations: [Gastro-esophageal reflux disease without esophagitis] 02-24-2025 Chronic Essential hypertension (1 source) Hypertensive disorder; Translations: [Essential (primary) hypertension] 02-24-2025 Chronic Mood disorders (1 source) Depressive disorder; Translations: [Depression] 02-24-2025 Chronic Spondylosis; intervertebral disc disorders; other back problems (1 source) Lumbago with sciatica, right side; Translations: [Lumbago with sciatica, right side] Onset: 01-03-2025 Episodic Results Test Name Value Interpretation Reference Range Facility MR/PAT.ANEon 03-31-2025 MR/PAT.[facility] Medical Records Department [address] [place] [address] PAT - Anesthesia 03/31/25 1154 MR#: [id number] Acct: [id number] Name: JAKY LEW Rep #: [id number] : 1965 59 From: Ruslan Zuniga MD PCP: Dr. Jaky Chavez MD Status:PRE [facility] Y Race: C Location: [facility] Pre-Assessment Diagnosis/Proposed Procedure Planned Operative Procedure(s): LAP ROBOTIC INGUINAL HERNIA REPAIR BILAT WITH MESH Anesthesia History Anesthesia History - box blank machine feeder: Anesthesia History - box blank machine feeder Hx Hospitalization No 03/23/25 16:34 Any Problems With Anesthesia No 03/23/25 16:34 Cholinesterase deficiency No 03/23/25 16:34 You/Your Family Experience No 03/23/25 16:34 fever (hyperthermia) with Relationship Recent Exposure to Contagious Disease Does patient have nerve No 03/23/25 16:34 stimulator Patient instructed to have device shut off --Does patient have Pacemaker or ICD? When Was Last Pacemaker Check QUESTION #4 FULL TEXT: You/Your Family Experience fever (hyperthermia) with Anesthesia Last Oral Intake Last Oral intake: Last Oral Intake NPO since Meds taken in AM with sips of water? Meds patient instructed to take am of surgery PONV PONV - box blank machine feeder: PONV - box blank machine feeder Female No 03/23/25 16:34 HX of Motion Sickness No 03/23/25 16:34 HX of N/V After Surgery No 03/23/25 16:34 Non-Smoker Yes 03/23/25 16:34 Duration of Surgery greater Yes 03/23/25 16:34 than 60 minutes Number of Risk Factors 2 03/23/25 16:34 PONV Score Moderate Risk 03/23/25 16:34 Height Weight Height Weight: Anesthesia: Height Weight Height 5 ft 7 in 03/10/25 13:45 Respiratory Assessment Respiratory Assessment - box blank machine feeder: Respiratory Tract Infection Hx - box blank machine feeder Hx Respiratory Tract Infection No 03/23/25 16:34 STOP Sleep Apnea STOP Sleep Apnea - box blank machine feeder: STOP Sleep Apnea - box blank machine feeder Hx Hypertension Yes: CONTROLLED WITH MED 03/23/25 16:34 Hx Sleep Apnea Yes 03/23/25 16:34 CPAP Yes 03/23/25 16:34 BIPAP No 03/23/25 16:34 Do you snore loudly (louder than talking or can be heard Do you often feel tired/ fatigued/ sleepy during daytime? Has anyone observed you stop breathing during sleep? STOP Results Positive 03/23/25 16:34 QUESTION #5 FULL TEXT : Do you snore loudly (louder than talking or can be heard through closed doors)? Tobacco Use History Tobacco Use History - box blank machine feeder: Tobacco Use History - box blank machine feeder Tobacco Use Smoking Status Former smoker 03/23/25 16:34 Hx Tobacco Use Yes 03/23/25 16:34 Years Smoking Packs Smoked per Day Smoking Cessation Date was Yes - quit smoking within 15 03/23/25 16:34 within the last 15 years years Hx Smoking Cessation Date 10/19/24 03/23/25 16:34 Hx Smoking Cessation Counseling Hematologic Medial History Hematologic Hx - box blank machine feeder: Hematologic Medical Hx - drugless doctor Hx of Blood Transfusion No 03/23/25 16:34 Hx of Transfusion in last 3 No 03/23/25 16:34 Months Date of Last Transfusion (if within last 3 months) Ever experience any problems No 03/23/25 16:34 with transfusion(s)? Specify any problems Hx of Preganancy in last 3 N/A 03/23/25 16:34 Months Nurse Filling Out Transfusion DSCHRIBER 03/23/25 16:34 Questions: Date: 03/23/25 03/23/25 16:34 Time: 16:35 03/23/25 16:34 Patient unable to answer at this time (ie. confused, unrespo /Reproduct ion History /Reproduct giorgio History - box blank machine feeder: /Reproduct giorgio Hx- box blank machine feeder Hx Now No 03/23/25 16:34 Gestational Age (in weeks): EDC: Hx Hx Para Hx Section SAB No 03/23/25 16:34 Active Medications Active Medications: Current Medications Generic Name Dose Route Start Last Admin Trade Name Freq PRN Reason Stop Dose Admin Cefazolin Sodium 2 gm/ Sodium 110 mls @ 150 mls/hr 04/03/25 07:30 Chloride IV 04/03/25 08:13 INTRAOP ONE [facility] Medical History (Updated 03/23/25 @ 16:42 by Stefanie Rosa) Wears glasses Alcohol use Arthritis Fatty liver Migraine headache History of hiatal hernia History of ulceration Chewing tobacco dependence CPAP (continuous positive airway pressure) dependence Shortness of breath on exertion Leg cramps History of pain when walking Cholelithiasis Bilateral inguinal hernia Right groin pain HTN (hypertension) GERD (gastroesophageal reflux disease) Depression Home Medications ???Medication ???Instructions ???Recorded ???Last Taken ???Type quetiapine 150 mg tablet (more content not included)... Normal [facility] Surgery Visit Reporton 03-10 Surgery Visit Report [facility] [address] [place] [address] OFFICE VISIT Date of Service: 03/10/25 MR#: [id number] Acct: [id number] Name: JAKY LEW Rep #: [id number] : 1965 Provider: Dr. 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 Required: No Accompanied by: Is patient in pain?: No Allergies bee venom protein (honey bee) Allergy (Verified 03/10/25 13:51) Shortness of breath pollen extracts Allergy (Verified 03/10/25 13:51) Rash Medications ???Medication ???Instructions ???Recorded ???Confirmed ???Type quetiapine 150 mg tablet,extended 150 mg PO QHS 02/14/18 03/10/25 H istory release 24 hr (Seroquel XR) sertraline 100 mg tablet 100 mg PO DAILY 02/14/18 03/10/25 History fexofenadine 60 mg-pseudoephedrine 1 tab PO Q12H PRN 02/24/2503/10 History ER 120 mg tablet,ext.release, 12 hr (Anum-D 12 Hour) lisinopril 10 mg tablet 10 mg PO QDAY 02/24/25 03/10/25 Hi story omeprazole 20 mg capsule,delayed 20 mg PO QDAY 02/24/25 03/10/25 Hi story release Have you fallen in the past year?: No PFSH Medical History (Updated 03/10/25 @ 13:50 by Ally Ordonez) Cholelithiasis Umbilical hernia Bilateral inguinal hernia Right groin pain Allergies HTN (hypertension) GERD (gastroesophageal reflux disease) Depression Surgical History S/P vasectomy Social History Smoking Status: Never smoker alcohol intake: current HPI HPI HPI: The patient was recently in the emergency room and had a CT scan performed which showed bilateral inguinal hernias. Patient is still having trouble getting in and out of his car and tying his shoes due to pain ROS General General: No weight change, appetite, fatigue, colon cancer, breast cancer or weakness HEENT HEENT: No difficulty swallowing, eye injury, eye surgery, swollen glands or hoarseness Endo Endocrine: No thyroid disease, diabetes mellitus, thyroid cancer, Hair loss, heat intolerance or cold intolerance Skin Skin: No rash or changing moles Breast Breast: No left breast lump, right breast lump, nipple discharge, breast pain, abnormal mammogram, abnormal US or breast enlargement Musc Musculoskeletal: Yes arthritis; No back problems, rheumatoid arthritis, gout or joint pain Cardio Cardiovascular: No murmur, pacemaker, heart disease, atrial fibrillation, high blood pressure, heart attack, heart stent, palpitations, shortness of breath with exertion or chest pain Psych Psychiatric: Yes anxiety; No depression or hearing voices Resp Respiratory: No shortness of breath, No sleep apnea, No cough, No COPD, No asthma, No emphysema and No wheezing Gastro Gastrointestinal: No abdominal pain, No nausea or vomiting, No diarrhea, No constipation, No blood in stool, No acid reflux, No hemorrhoids, No ulcers, No gallbladder problem and No black,tarry stools Jay Jay Hematologic: No blood thinners, No blood disorders, No bleeding, No anemia and No blood clots Neuro Neurologic: No system reviewed and no additional complaints, except as documented, No as per HPI, No abnormal gait, No abnormal hearing, No abnormal movements, No abnormal speech, No behavioral changes, No burning sensations, No confusion, No convulsions, No disequilibrium, No dizziness, No localized weakness, No frequent falls, No headache(s), No lack of coordination, No loss of vision, No memory loss, No numbness, No other visual disturbances, No radicular pain, No restless legs, No sensory deficit, No syncope, No tingling, No tremor(s), No weakness and No other Exam Const General: cooperative Orientation: alert and oriented x3 HENIN Head: normal to inspection Neck Neck: normal visual inspection and full ROM Chest Chest palpation inspection: normal inspection of the chest Resp Effort Inspection: normal respiratory effort Auscultation: clear to auscultation bilaterally Cardio Rate: regular rate Rhythm: regular rhythm GI Inspection: non-distended Palpation: soft and nontender Skin General: no rashes or lesions noted Neuro General: patient alert and patient oriented x3 Extrem General: full ROM Psych Appearance: grossly normal Mental Status: mental status grossly normal (more content not included)... Normal [facility] Abdomen/Pelvis W IV Cont ONL Yon 05-17-2025 Abdomen/Pelvis W IV Cont ONLY [facility] Imaging Services [address] [place], [place] [id number] Abdomen/Pelvis W IV Cont ONLY MR#: [id number] Acct: [id number] Name: JAKY LEW Rep #: [id number] : 1965 M 59 From: Aurelio Howard MD PCP: Dr. Jaky Chavez MD Status: REG ER Study: Abdomen/Pelvis W IV Cont ONLY Date of Exam: Exam# [id number] Ordering Dr: Elizabeth Mcknight EXAM: CT Abdomen and Pelvis With Intravenous Contrast CLINICAL INDICATION: R GROIN PAIN TECHNIQUE: Axial computed tomography images of the abdomen and pelvis with intravenous contrast. This CT exam was performed using one or more of the following dose reduction techniques: automated exposure control, adjustment of the mA and/or kV according to patient size, and/or use of iterative reconstruction technique. COMPARISON: No relevant prior studies available. FINDINGS: LUNG BASES: Unremarkable. No mass. No consolidation. MEDIASTINUM: Small esophageal hiatal hernia. ABDOMEN: LIVER: Hepatomegaly with fatty infiltration. GALLBLADDER AND BILE DUCTS: Cholelithiasis. No ductal dilation. PANCREAS: Unremarkable. No mass. No ductal dilation. SPLEEN: Unremarkable. No splenomegaly. ADRENALS: Unremarkable. No mass. KIDNEYS AND URETERS: Unremarkable. No stones within either kidney. No hydronephrosis. STOMACH AND BOWEL: Unremarkable. No obstruction. No mucosal thickening. PELVIS: APPENDIX: No findings to suggest acute appendicitis. BLADDER: Unremarkable. No mass. REPRODUCTIVE: The prostate gland measures 4.0 cm in maximum dimension. ABDOMEN and PELVIS: INTRAPERITONEAL SPACE: Unremarkable. No free air. No significant fluid collection. BONES/JOINTS: No acute fracture. No dislocation. SOFT TISSUES: Umbilical hernia containing fat. Inguinal hernias, bilaterally. VASCULATURE: Unremarkable. No abdominal aortic aneurysm. LYMPH NODES: Unremarkable. No enlarged lymph nodes. CT/Abdomen/Pelvis W IV Cont ONLY IMPRESSION: 1. Small esophageal hiatal hernia. 2. Hepatomegaly with fatty infiltration. 3. Cholelithiasis. 4. Umbilical hernia containing fat. 5. Inguinal hernias, bilaterally. 6. No obstructive uropathy. Reading Location: [facility] CC: Dr. Jaky Chavez MD; JOSE ROBERTO Flor Conveyor Attendant: Signed Normal [facility] Absolute lymphocyte countOrd ered By: Elizabeth Mcknight on 03-04-2025 Lymphocytes Auto (Unsp spec) [#/Vol] 1.98 10*3/uL 0.83-4.51 [facility] Absolute neutrophil countOrd ered By: Elizabeth Mcknight on 03-04-2025 Neutrophils (Bld) [#/Vol] 7.8 10*3/uL High 2.0-7.7 [facility] Anion gap in Serum or Plasma Ordered By: Elizabeth Mcknight on 03-04-2025 Anion gap [Moles/Vol] 12 mmol/L - [facility] Automated blood erythrocyte countOrdered By: Elizabeth Mcknight on 03-04-2025 RBC (Bld) [#/Vol] 5.17 10*6/uL Normal 4.6-6.2 [facility] Comment on above: Performed By: #### L 100.0100, L500.2500 #### [facility] [address] [place], [place], [id number] Automated blood hematocrit ( percentage)Ordered By: Elizabeth Mcknight on 03-04-2025 Hematocrit (Bld) [Volume fraction] 43.6 % Normal 40-54 [facility] Comment on above: Performed By: #### L 100.0100, L500.2500 #### [facility] [address] [place], [address] Automated lymphocyte count a s percentage of total leukocytesOrdered By: Elizabeth Mcknight on 03-04-2025 Lymphocytes/100 WBC Auto (Unsp spec) 16.4 % Low 19-41 [facility] BUN/creatinine ratioOrdered By: Elizabeth Mcknight on 03-04-2025 Urea nitrogen/Creatinine [Mass ratio] 8.9 mg/mg Low 10- [facility] Basic Metabolic Profile (BMP )on 03-04-2025 BUN/CRE 8.9 RATIO Low 10- [facility] Comment on above: Performed By: #### L 100.0100, L500.2500 #### [facility] [address] [place], [address] ECRCL 88.91 ml/min Normal 50-250 [facility] Comment on above: Performed By: #### L 100.0100, L500.2500 #### [facility] [address] [place], [address] GAP 12 Normal 5-15 [facility] Comment on above: Performed By: #### L 100.0100, L500.2500 #### [facility] [address] [place], [address] Potassium [Moles/Vol] 4.1 mmol/L Normal 3.3-5.1 [facility] Comment on above: Performed By: #### L 100.0100, L500.2500 #### [facility] [address] [place], [address] Basophil percentageOrdered B y: Elizabeth Mcknight on 03-04-2025 Basophils/100 WBC (Bld) 0.7 % Normal 0-1 [facility] Comment on above: Performed By: #### L 100.0100, L500.2500 #### [facility] [address] [place], [address] CBC W/Diff, Automatedon 05- Absolute Lymph 1.98 X10 3/uL Normal 0.83-4.51 [facility] Comment on above: Performed By: #### L 100.0100, L500.2500 #### [facility] [address] [place], [address] Absolute Neut 7.8 X10 3/uL High 2.0-7.7 [facility] Comment on above: Performed By: #### L 100.0100, L500.2500 #### [facility] [address] [place], [address] IG% 0.700 Normal 0.0-0.9 [facility] Comment on above: Result Comment: IG% - Immature Granulocytes (promyelocytes, myelocytes and metamyelocytes) > 1% indicates that a LEFT SHIFT is Present. Performed By: #### L 100.0100, L500.2500 #### [facility] [address] [facility] [place], [address] Lymphocytes/100 WBC (Bld) 16.4 % Low 19-41 [facility] Comment on above: Performed By: #### L 100.0100, L500.2500 #### [facility] [address] [place], [address] Nucleated RBC (Bld) [#/Vol] 0 10*3/uL Normal 0-5 [facility] Comment on above: Performed By: #### L 100.0100, L500.2500 #### [facility] [address] [facility] [place], [address] RDW SD 35.7 fl Normal 35.1-43.9 [facility] Comment on above: Performed By: #### L 100.0100, L500.2500 #### [facility] [address] [facility] [place], [address] Carbon dioxide, total [Moles /volume] in Central venous bloodOrdered By: Elizabeth Mcknight on 03-04-2025 CO2 [Moles/Vol] 23.2 mmol/L Normal 21.0-32.0 [facility] Comment on above: Performed By: #### L 100.0100, L500.2500 #### [facility] [address] [place], [address] Chloride assayOrdered By: Lashawn Mcknight on 03-04-2025 Chloride [Moles/Vol] 103 mmol/L Normal 98-108 [facility] Comment on above: Performed By: #### L 100.0100, L500.2500 #### [facility] [address] [place], [address] Emergency Department Summary on 03-04-2025 Emergency Department Summary [facility] Medical Records Department [address] [place] [address] Emergency Department Summary 03/04/25 MR#: [id number] Acct: [id number] Name: JAKY LEW Rep #: [id number] : 1965 59 From: Elizabeth CID PCP: Dr. Jaky Chavez MD Status:DEP ER Location: ED HPI History of Present Illness Chief Complaint: Other, Pain/Inj Narrative Narrative: Patient presenting today with pain to his right groin he has had over the last 2 months. He reports pain is worse with range of motion of his right hip, especially with abducting. He has seen his PCP for this, he referred him to Dr. Cadet due to suspicions for an inguinal hernia, he saw him in the office an ordered an outpatient CT scan of the pelvis with IV contrast, this is not scheduled until 03/16. He reports that he had an outpatient ultrasound performed yesterday to assess for hernia, he reports that they told him there was no obvious abnormality seen on the ultrasound but now his pain is worse after having the ultrasound probe pressing against the area, prompting him to come in to be seen. He reports daily bowel movements. He denies any stool changes, urinary symptoms, fevers, and chills. He has no history of previous abdominal surgery or hernias. [facility] Medical History Right groin pain Allergies HTN (hypertension) GERD (gastroesophageal reflux disease) Depression Home Medications ???Medication ???Instructions ???Recorded ???Last Taken ???Type quetiapine 150 mg tablet,extended 150 mg PO QHS 02/14/18 Unknown Hi story release 24 hr (Seroquel XR) sertraline 100 mg tablet 100 mg PO DAILY 02/14/18 Unknown H istory fexofenadine 60 mg-pseudoephedrine 1 tab PO Q12H PRN 02/24/25 Unkno wn History ER 120 mg tablet,ext.release, 12 hr (Anum-D 12 Hour) lisinopril 10 mg tablet 10 mg PO QDAY 02/24/25 Unknown His tory omeprazole 20 mg capsule,delayed 20 mg PO QDAY 02/24/25 Unknown His tory release Allergy/AdvReac Type Severity Reaction Status Date / Time bee venom protein (honey bee) Allergy Shortness Verified 03/04/25 14:36 of breath pollen extracts Allergy Rash Verified 03/04/25 14:36 Surgical History S/P vasectomy Social History Smoking Status: Never smoker alcohol intake: current ROS ROS ED Constitutional Constitutional ED: Denies chills or fever(s) Cardiovascular Cardiovascular: Denies chest pain Respiratory/Chest Respiratory/Chest: Denies dyspnea Gastrointestinal Gastrointestinal: Denies abdominal pain, constipation, diarrhea, nausea or vomiting Genitourinary Genitourinary ED: Denies dysuria, hematuria or urinary urgency Musculoskeletal Musculoskeletal: Reports other Details: Right groin pain Integumentary Denies rash Neurologic Neurologic: Denies paresthesias EXAM Physical Exam Const Vital Signs: 03/04/25 14:32 03/04/25 14:43 03/04/25 16:18 Temperature 97.9 F 97.9 F Temperature Source Temporal Pulse Rate 95 84 Respiratory Rate 15 16 Respiratory Effort Normal Non-Labored Respiratory Pattern Normal Blood Pressure 137/93 H 144/95 H Blood Pressure Mean 107 111 Pulse Ox 95 96 Oxygen Delivery Method Room Air Positive well nourished, well developed and no apparent distress General Appearance ED: well developed HEENT Reports normocephalic and head/scalp atraumatic Mouth ED: Yes moist mucous membranes normal Eyes PERRL and EOMs intact bilaterally Neck full ROM and supple Chest Wall inspection of chest normal Resp normal respiratory effort and clear to auscultation bilaterally Cardio regular rate and regular rhythm GI soft to palpation, non-tender, non-distended and no masses Narrative: Tenderness to the right mid groin, no obvious hernia palpated, no overlying rash or lesions Back/Spine normal ROM and normal to inspection Extremity normal to inspection and full ROM Extremity Narrative: Pain to palpation to the right groin with right hip abduction, negative logroll on the right, no pain to palpation to the right hip Neuro oriented x3, CN's II-XII intact bilaterally, moves all extremities, no focal motor deficits and no sensory deficits noted Sensorium / Orientation: awake and alert Psych mental status grossly normal and thought process normal Skin no rashes or lesions noted and no wounds Physical Exam Const Vital Signs: 03/04/25 14:32 03/04/25 14:43 03/04/25 16:18 Temperature 97.9 F 97.9 F Temperature Source Temporal Pulse Rate 95 84 Respiratory Rate 15 16 Respiratory Effort Normal Non-Labored Re (more content not included)... Normal [facility] Eosinophil percentageOrdered By: Elizabeth Mcknight on 03-04-2025 Eosinophils/100 WBC (Bld) 11.1 % High 0-5 [facility] Comment on above: Performed By: #### L 100.0100, L500.2500 #### [facility] [address] [place], [place], [address] Erythrocyte distribution wid th ratioOrdered By: Elizabeth Mcknight on 03-04-2025 Erythrocyte distribution width (RBC) [Ratio] 11.8 % Normal 11.6-14.6 [facility] Comment on above: Performed By: #### L 100.0100, L500.2500 #### [facility] [address] [place], [address] Erythrocyte distribution wid th standard deviationOrdered By: Elizabeth Mcknight on 03-04-2025 Erythrocyte distribution width (RBC) [Ratio] 35.7 fl 35.1-43.9 [facility] Glomerular filtration rate ( GFR) estimation/1.73 sq m using serum, plasma, or whole bOrdered By: Elizabeth Mcknight on 03-04-2025 GFR/1.73 sq M.predicted among non-blacks MDRD (S/P/Bld) [Vol rate/Area] 78 mL/min/{1.73_m2} Normal >60 [facility] Comment on above: mL/min/1.73m2 CKD-EP I Creatinine Equation (2020) Result Comment: mL/m in/1.73m2 CKD-EPI Creatinine Equation (2020) Performed By: #### L 100.0100, L500.2500 #### [facility] [address] [place], [address] Hemoglobin measurementOrdere d By: Elizabeth Mcknight on 03-04-2025 Hemoglobin (Bld) [Mass/Vol] 15.5 g/dL Normal 13.0-16.5 [facility] Comment on above: Performed By: #### L 100.0100, L500.2500 #### [facility] [address] [place], [address] Immature granulocytes/100 WB C Auto (Bld)Ordered By: Elizabeth Mcknight on 03-04-2025 Immature granulocytes/100 WBC (Bld) 0.700 % 0.0-0.9 [facility] Comment on above: IG% - Immature Granu locytes (promyelocytes, myelocytes and metamyelocytes) > 1% indicates that a LEFT SHIFT is Present. MCV (mean corpuscular volume ) determinationOrdered By: Elizabeth Mcknight on 03-04-2025 MCV (RBC) [Entitic vol] 84.3 fL Normal 80-94 [facility] Comment on above: Performed By: #### L 100.0100, L500.2500 #### [facility] [address] [place], [address] Mean corpuscular hemoglobin (MCH) determinationOrdered By: Elizabeth Mcknight on 03-04-2025 MCH (RBC) [Entitic mass] 30.0 pg Normal 27.0-32.0 [facility] Comment on above: Performed By: #### L 100.0100, L500.2500 #### [facility] [address] [place], [address] Mean corpuscular hemoglobin concentration (MCHC) determinationOrdered By: Elizabeth Mcknight on 03-04-2025 MCHC (RBC) [Mass/Vol] 35.6 g/dL Normal 32-36 [facility] Comment on above: Performed By: #### L 100.0100, L500.2500 #### [facility] [address] [place], [address] Mean platelet volume determi nationOrdered By: Elizabeth Mcknight on 03-04-2025 Platelet mean volume (Bld) [Entitic vol] 11.4 fL Normal 6.2-12.0 [facility] Comment on above: Performed By: #### L 100.0100, L500.2500 #### [facility] [address] [place], [address] Monocyte percentageOrdered B y: Elizabeth Mcknight on 03-04-2025 Monocytes/100 WBC (Bld) 6.9 % Normal 0-10 [facility] Comment on above: Performed By: #### L 100.0100, L500.2500 #### [facility] [address] [place], [address] Neutrophil percentageOrdered By: Elizabeth Mcknight on 03-04-2025 Neutrophils/100 WBC (Bld) 64.2 % Normal 47-70 [facility] Comment on above: Performed By: #### L 100.0100, L500.2500 #### [facility] [address] [place], [address] Nucleated red blood cell per centageOrdered By: Elizabeth Mcknight on 03-04-2025 Nucleated RBC/100 WBC (Bld) [Ratio] 0 % 0-5 [facility] Platelet countOrdered By: Lashawn Mcknight on 03-04-2025 Platelets (Bld) [#/Vol] 169 10*3/uL Normal 150-450 [facility] Comment on above: Performed By: #### L 100.0100, L500.2500 #### [facility] [address] [place], [address] Potassium measurement (mass/ volume)Ordered By: Elizabeth Mcknight on 03-04-2025 Potassium (Unsp spec) [Mass/Vol] 4.1 mmol/L 3.3-5.1 [facility] Serum creatinine measurement (mass/volume)Ordered By: Elizabeth Mcknight on 03-04-2025 Creatinine [Mass/Vol] 1.10 mg/dL Normal 0.70-1.20 [facility] Comment on above: Performed By: #### L 100.0100, L500.2500 #### [facility] [address] [place], [address] Serum glucose measurement (m ass/volume)Ordered By: Elizabeth Mcknight on 03-04-2025 Glucose [Mass/Vol] 188 mg/dL High 70-99 [facility] Comment on above: Performed By: #### L 100.0100, L500.2500 #### [facility] [address] [place], [address] Serum or plasma calcium eliezer urement (mass/volume)Ordered By: Elizabeth Mcknight on 03-04-2025 Calcium [Mass/Vol] 9.4 mg/dL Normal 7.6-11.0 [facility] Comment on above: Performed By: #### L 100.0100, L500.2500 #### [facility] [address] [place], [address] Serum or plasma urea nitroge n measurement (mass/volume)Ordered By: Elizabeth Mcknight on 03-04-2025 Urea nitrogen [Mass/Vol] 10 mg/dL Normal 4-19 [facility] Comment on above: Performed By: #### L 100.0100, L500.2500 #### [facility] [address] [place], [address] Sodium levelOrdered By: Miguel A Mcknight on 03-04-2025 Sodium [Moles/Vol] 138 mmol/L Normal 133-145 [facility] Comment on above: Performed By: #### L 100.0100, L500.2500 #### [facility] [address] [place], [address] White blood cell (WBC) count Ordered By: Elizabeth Mcknight on 03-04-2025 WBC (Bld) [#/Vol] 12.1 10*3/uL High 4.4-11.0 [facility] Comment on above: Performed By: #### L 100.0100, L500.2500 #### [facility] [address] [place], [address] US GROIN RIGHTon 03-03-2025 US GROIN RIGHT ORIGINAL EXAMINATION: RIGHT GROIN ULTRASOUND 03/03/2025 TECHNIQUE: Linear real-time and Doppler evaluation of the symptomatic right groin performed. COMPARISON: None HISTORY: ORDERING SYSTEM PROVIDED HISTORY: Reason for Exam: INGUINAL HERNIA RIGHT FINDINGS: Normal appearing lymph node measuring 1.6 x 0.6 x 0.5 cm with normal cortical thickness noted in the right groin. There is no pathologic lymphadenopathy, fluid collection, lipoma, or hernia observed. IMPRESSION: Normal right groin lymph node. Interpreted by: Adi Low DO Preliminary Report By: Adi Low DO Electronically signed By Adi Low DO Dictated Date: 03/03/2025 3:31:34 PM Prelim Date: 03/03/2025 3:33:16 PM Sign Date: 03/03/2025 3:33:16 PM Ordering Provider: JAKY Negrete [facility] Surgery Visit Reporton 02-24 Surgery Visit Report [facility] [address] [place] [address] OFFICE VISIT Date of Service: 02/24/25 MR#: [id number] Acct: [id number] Name: LOUANNJAKY Rep #: [id number] : 1965 Provider: Dr. Rojas adamson MD Age/Sex: 59/M Location: [facility] Status: Signed Intake Vital Signs 02/24/25 14:11 Height 5 ft 7 in Weight: 252 lb BMI 39.4 BP 137/82 H Blood Pressure Location Rt brachial Position Sitting Respiration 18 Intake Visit Reasons: INGUINAL HERNIA Chief Complaint: [facility] [employer] Work[employer]ive[employer] Required: No Is patient in pain?: Yes (right groin) Allergies bee venom protein (honey bee) Allergy (Verified 02/24/25 14:12) Shortness of breath pollen extracts Allergy (Verified 02/24/25 14:12) Rash Medications ???Medication ???Instructions ???Recorded ???Confirmed ???Type quetiapine 150 mg tablet,extended 150 mg PO QHS 02/14/18 02/14/18 H istory release 24 hr (Seroquel XR) sertraline 100 mg tablet 100 mg PO DAILY 02/14/18 02/14/18 History fexofenadine 60 mg-pseudoephedrine 1 tab PO Q12H PRN 02/24/25 Hist ory ER 120 mg tablet,ext.release, 12 hr (Anum-D 12 Hour) lisinopril 10 mg tablet 10 mg PO QDAY 02/24/25 History omeprazole 20 mg capsule,delayed 20 mg PO QDAY 02/24/25 History release Have you fallen in the past year?: No PFSH Medical History (Updated 02/24/25 @ 14:14 by Tiffany Langston) Right groin pain Allergies HTN (hypertension) GERD (gastroesophageal reflux disease) Depression Surgical History (Updated 02/24/25 @ 14:11 by Tiffany Langston) S/P vasectomy Social History (Updated 02/24/25 @ 14:11 by Tiffany Langston) Smoking Status: Never smoker alcohol intake: current HPI HPI HPI: Patient is a 59-year-old male here for a right inguinal hernia. The patient reports that he had a groin pain that started and now he has been unable to tie his shoe or to bend over and touch the ground because of pain in his right groin. He does not notice any bulging. ROS General General: No weight change, appetite, fatigue, colon cancer, breast cancer or weakness HEENT HEENT: No difficulty swallowing, eye injury, eye surgery, swollen glands or hoarseness Endo Endocrine: No thyroid disease, diabetes mellitus, thyroid cancer, Hair loss, heat intolerance or cold intolerance Skin Skin: No rash or changing moles Breast Breast: No left breast lump, right breast lump, nipple discharge, breast pain, abnormal mammogram, abnormal US or breast enlargement Musc Musculoskeletal: Yes arthritis; No back problems, rheumatoid arthritis, gout or joint pain Cardio Cardiovascular: No murmur, pacemaker, heart disease, atrial fibrillation, high blood pressure, heart attack, heart stent, palpitations, shortness of breath with exertion or chest pain Psych Psychiatric: Yes anxiety; No depression or hearing voices Resp Respiratory: No shortness of breath, No sleep apnea, No cough, No COPD, No asthma, No emphysema and No wheezing Gastro Gastrointestinal: No abdominal pain, No nausea or vomiting, No diarrhea, No constipation, No blood in stool, No acid reflux, No hemorrhoids, No ulcers, No gallbladder problem and No black,tarry stools [place] Hematologic: No blood thinners, No blood disorders, No bleeding, No anemia and No blood clots Neuro Neurologic: No system reviewed and no additional complaints, except as documented, No as per HPI, No abnormal gait, No abnormal hearing, No abnormal movements, No abnormal speech, No behavioral changes, No burning sensations, No confusion, No convulsions, No disequilibrium, No dizziness, No localized weakness, No frequent falls, No headache(s), No lack of coordination, No loss of vision, No memory loss, No numbness, No other visual disturbances, No radicular pain, No restless legs, No sensory deficit, No syncope, No tingling, No tremor(s), No weakness and No other Exam Const General: cooperative Orientation: alert and oriented x3 [facility] Head: normal to inspection Neck Neck: normal visual inspection and full ROM Chest Chest palpation inspection: normal inspection of the chest Resp Effort Inspection: normal respiratory effort Auscultation: clear to auscultation bilaterally Cardio Rate: regular rate Rhythm: regular rhythm GI Inspection: non-distended Palpation: soft and nontender Skin General: no rashes or lesions noted Neuro General: patient alert and patient oriented x3 Extrem General: full ROM Psych Appearance: grossly normal Mental Status: mental status grossly normal Assessment and Plan Assessment and Plan (1) Right groin pain: Status: Acute Plan: Patient is having right groin pain. I was unable to palpate an obvious hernia. I would like to order a CT scan to evaluate the pelvis. He (more content not included)... Normal [facility] L/S Spine w Bend Min 6 Vwon 12-20-2024 L/S Spine w Bend Min 6 [facility] [address] [place] [address] L/S Spine w Bend Min 6 Vw MR#: [id number] Acct: [id number] Name: JAKY LEW Rep #: [id number] : 1965 M 59 From: Aurelio Howard MD PCP: Dr. Jaky Chavez MD Status: REG CLI Study: L/S Spine w Bend Min 6 Vw Date of Exam: Exam# [id number] Ordering Dr: Jaky Chavez EXAM: XR Lumbosacral Spine, 4 or 5 Views CLINICAL INDICATION: TECHNIQUE: Frontal, lateral and bilateral oblique views of the lumbar spine. COMPARISON: No relevant prior studies available. FINDINGS: VERTEBRAE: Mild facet arthropathy of L4-S1. No acute fracture. Normal alignment. SACRUM/COCCYX: Unremarkable as visualized. No acute fracture. DISC SPACES: No acute findings. No significant narrowing. SOFT TISSUES: Unremarkable. RAD/L/S Spine w Bend Min 6 Vw IMPRESSION: No acute findings in the lumbar spine. Reading [facility] CC: Dr. Jaky Chavez MD Conveyor Attendant: Signed Normal [facility] Basophil percentageon 2021 Chloride [Moles/Vol] 103 mmol/L 98-107 [facility] Work Phone: Cholesterol [Mass/Vol] 216 mg/dL <200 [facility] Work Phone: Comment on above: <200 mg/dL Desirable 200-240 mg/dL Borderline >240 mg/dL High Risk Glucose [Mass/Vol] 122 mg/dL 74-106 [facility] Work Phone: Comment on above: Fasting Glucose resu lt from 100 to 125 mg/dL suggests IMPAIRED HOMEOSTASIS per A.D.A. criteria. Potassium [Moles/Vol] 3.8 mmol/L 3.5-5.1 [facility] Work Phone: Sodium [Moles/Vol] 139 mmol/L 136-145 [facility] Work Phone: Triglyceride [Mass/Vol] 510 mg/dL <199 [facility] Work Phone: Comment on above: The drugs N-Acetylcy steine and Metamizole may falsely depress this assay. TRIGLYCERIDE IS GREATER THAN 400 mg/dL. LDL RESULT IS INVALID AND WILL NOT BE REPORTED.Serum Triglycerides Reference Interval Normal <150 mg/dL Borderline high 150 - 199 mg/dL High 200 - 499 mg/dL Very High > or = 500 mg/dL Laboratory - Chemistry and C hemistry - challengeon 10-02-2022 CO2 [Moles/Vol] 30.0 mmol/L 21.0-32.0 [facility] Work Phone: Urea nitrogen/Creatinine [Mass ratio] 11.4 mg/mg 10-20 [facility] Work Phone: No Panel Informationon 10-02 Estimated GFR (MDRD) Amer 116 mL/min >60 [facility] Work Phone: Comment on above: GFR Calc Estimated GFR (MDRD) Non-Af Amer 96 mL/min >60 [facility] Work Phone: Comment on above: Non- GFR Calc Prostate Specific Antigen Screen 3.64 ng/mL 0.00-4.00 [facility] Work Phone: Comment on above: This test was perfor med using the TPSA assay method for the[employer] chemistry system. Values obtained with differentassay methods cannot be used interchangably.When changing PSA assays in the course of monitoring apatient, additional sequential testing should be carriedout to confirm baseline values. Serum or plasma calcium eliezer urement (mass/volume)on 10-02-2022 Calcium [Mass/Vol] 9.3 mg/dL 8.5-10.1 [facility] Work Phone: Serum or plasma cholesterol in HDL measurement (mass/volume)on 10-02-2022 Cholesterol in HDL [Mass/Vol] 31 mg/dL >40 [facility] Work Phone: Comment on above: The drugs N-Acetylcy steine and Metamizole may falsely depress this assay. Reference Range HDL <40 mg/dL Low HDL Cholesterol HDL >or= 60 mg/dL High HDL Cholesterol Serum or plasma cholesterol in VLDL measurement (mass/volume)on 10-02-2022 Cholesterol in VLDL [Mass/Vol] [facility] Work Phone: Comment on above: Test not performed Serum or plasma creatinine m easurement (mass/volume)on 10-02-2022 Creatinine [Mass/Vol] 0.88 mg/dL 0.70-1.30 [facility] Work Phone: Comment on above: The validity of the calculated GFR & GFRAA in patients over 70 years has not been determined. Clinical correlation is essential. Serum or plasma low density lipoprotein (LDL) cholesterol measurement (mass/volume)on 10-02-2022 Cholesterol in LDL [Mass/Vol] [facility] Work Phone: Comment on above: Test not performed Serum or plasma urea nitroge n measurement (mass/volume)on 10-02-2022 Urea nitrogen [Mass/Vol] 10 mg/dL 05-05 [facility] Work Phone: Thin prep Papanicolaou smear with manual screeningon 10-02-2022 Thin prep Papanicolaou smear with manual screening 03-02 [facility] Work Phone: Vital Signs Date Time Vital Sign Value Performing Clinician Faci lity 03-04-2025 16:18-0400 Body temperature 97.9 [degF] Dr. Jaky Chavez MD Work Phone: [facility] 03-04-2025 16:18-0400 Diastolic blood pressure 95 mm[Hg] Dr. Jaky Chavez MD Work Phone: [facility] 03-04-2025 16:18-0400 Heart rate 84 /min Dr. Jaky Chavez MD Work Phone: [facility] 03-04-2025 16:18-0400 Respiratory rate 16 /min Dr. Jaky Chavez MD Work Phone: [facility] 03-04-2025 16:18-0400 SaO2% (BldA) [Mass fraction] 96 % Dr. Jaky Chavez MD Work Phone: [facility] 03-04-2025 16:18-0400 Systolic blood pressure 144 mm[Hg] Dr. Jaky Chavez MD Work Phone: [facility] 03-04-2025 14:32-0400 Body height 170.[address] Jaky Chavez MD Work Phone: [facility] 03-04-2025 14:32-0400 Body mass index (BMI) [Ratio] 38.9 kg/m2 Dr. Jaky Chavez MD Work Phone: [facility] 03-04-2025 14:32-0400 Body weight 112.[address] Jaky Chavez MD Work Phone: [facility] 02-24-2025 14:11-0400 Body mass index (BMI) [Ratio] 39.4 kg/m2 Dr. Jaky Chavez MD Work Phone: [facility] 02-24-2025 14:11-0400 Body weight 114.[address] Jaky Chavez MD Work Phone: [facility] 02-24-2025 14:11-0400 Diastolic blood pressure 82 mm[Hg] Dr. Jaky Chavez MD Work Phone: [facility] 02-24-2025 14:11-0400 Respiratory rate 18 /min Dr. Jaky Chavez MD Work Phone: [facility] 02-24-2025 14:11-0400 Systolic blood pressure 137 mm[Hg] Dr. Jaky Chavez MD Work Phone: [facility] Encounters Encounter Date Encounter Type Care Provider Facility Start: 04-03-2025 ambulatory Rojas Garcia lity:[facility] Start: 03-10-2025 ambulatory Rojas Garcia lity:[facility] Start: 03-10-2025 End: 03-10-2025 ambulatory Rojas Cadet Facility:[facility] Start: 03-04-2025 End: 03-04-2025 Emergency department patient visit Dr. Jaky Chavez MD Work Phone: -Emergency Department Work Phone: Start: 03-03-2025 End: 03-03-[address] JAKY CHAVEZ MD Facility:[facility] Start: 03-03-2025 End: 03-03-[address] JAKY CHAVEZ MD [facility] Start: 02-24-2025 End: 02-24-[address] Rojas Cadet MD -[facility] Work Phone: Start: 02-24-2025 End: 02-24-2025 ambulatory Rojas Cadet Facility:[facility] Start: 12-20-2024 End: 12-20-[address] Jaky Chavez MD Work Phone: [facility] Work Phone: Start: 12-20-2024 End: 12-20-[address] Jaky Chavez MD -Radiology, [place] Work Phone: Start: 12-20-2024 End: 12-20-2024 ambulatory Jaky Chavez Facility:[facility] Start: 10-02-2022 End: 10-02-2022 ambulatory [facility] Work Phone: Start: 10-02-2022 End: 10-02-2022 [facility] Start: 02-14-2022 End: 02-14-2022 Patient encounter [facility] Procedures Date Procedure Procedure Detail Performing Clinician Start: 03-04-[address] Jaky Chavez MD Work Phone: Start: 03-04-2025 Computed tomography of abdomen and pelvis with intravenous contrast Dr. Jaky Chavez MD Work Phone: Start: 12-20-2024 Complete x-ray serie s of lumbar spine with bending views Dr. Jaky Chavez MD Work Phone: Start: 02-14-2022 Radiologic examinati on of knee Plan of Treatment Date Care Activity Detail Author Start: 03-04-[address] [facility] Pelvis WO contrast [place] [facility] Patient Education ED Hernia (Adult) [facility] [facility] Work Phone: Patient referral [facility] Work Phone: Payers Date Payer Category Payer Unknown [id number] 2024 Self-pay [id number] 2024 Unknown [id number] 2016 Private Health Insurance [id number] 1965 Unknown [id number] Unknown [id number] Unknown [facility] [id number] Unknown [id number] Unknown [id number] Unknown [id number] Unknown [id number] Unknown [id number] Unknown [id number] Social History Date Type Detail Facility Start: 02-14-2018 End: 02-14-2018 Tobacco smoking status GAIS Unknown if ever smoked [facility] Work Phone: Start: 1965 Sex Assigned At Male [facility] Start: 02-14-2018 End: 03-04-2025 Tobacco smoking status NHIS Never smoked tobacco (finding) [facility] Start: 01-03-2025 Sex Male (finding) [facility] Mental Status Date Assessment Result Facility 03-04-2025 Cognitive function Level Of Cons ciousness Awake;Alert;Appropriate;Follow s Commands [facility] Work Phone: Radiology Diagnostic study note 03-04-2025 Note Date & Type Note Facility 03-04-2025 Radiology Diagnostic study note [facility] Imaging Services [address] [place], [place] [id number] Abdomen/Pelvis W IV Cont ONLY MR#: [id number] Acct: [id number] Name: JAKY LEW Rep #: [id number] : 1965 M 59 From: Renay Howard MD PCP: Dr. Jaky Chavez MD Status: REG ER Study:Abdomen/Pelvis W IV Cont ONLY Date of E xam: 03/04/25 Exam# [id number] Ordering Dr: Elizabeth Ramires EXAM: CT Abdomen and Pelvis With Intravenous Contrast CLINICAL INDICATION: R GROIN PAIN TECHNIQUE: Axial computed tomography images of the abdomen and pelvis with intravenous contrast. This CT exam was performed using one or more of the following dose reduction techniques: automated exposure control, adjustment of the mA and/or kV according to patient size, and/or use of iterative reconstruction technique. COMPARISON: No relevant prior studies available. FINDINGS: LUNG BASES: Unremarkable. No mass. No consolidation. MEDIASTINUM: Small esophageal hiatal hernia. ABDOMEN: LIVER: Hepatomegaly with fatty infiltration. GALLBLADDER AND BILE DUCTS: Cholelithiasis. No ductal dilation. PANCREAS: Unremarkable. No mass. No ductal dilation. SPLEEN: Unremarkable. No splenomegaly. ADRENALS: Unremarkable. No mass. KIDNEYS AND URETERS: Unremarkable. No stones within either kidney. No hydronephrosis. STOMACH AND BOWEL: Unremarkable. No obstruction. No mucosal thickening. PELVIS: APPENDIX: No findings to suggest acute appendicitis. BLADDER: Unremarkable. No mass. REPRODUCTIVE: The prostate gland measures 4.0 cm in maximum dimension. ABDOMEN and PELVIS: INTRAPERITONEAL SPACE: Unremarkable. No free air. No significant fluid collection. BONES/JOINTS: No acute fracture. No dislocation. SOFT TISSUES: Umbilical hernia containing fat. Inguinal hernias, bilaterally. VASCULATURE: Unremarkable. No abdominal aortic aneurysm. LYMPH NODES: Unremarkable. No enlarged lymph nodes. CT/Abdomen/Pelvis W IV Cont ONLY IMPRESSION: 1. Small esophageal hiatal hernia. 2. Hepatomegaly with fatty infiltration. 3. Cholelithiasis. 4. Umbilical hernia containing fat. 5. Inguinal hernias, bilaterally. 6. No obstructive uropathy. Reading Location: [facility] CC: Dr. Jaky Chavez MD; JOSE ROBERTO Flor ~ Conveyor Attendant: Signed [facility] Clinical Note 03-03-2025 Note Date & Type Note Facility 03-03-2025 Note Exam Date Time Procedure Performing Provider Status 03/03/25 1:15 PM US Groin Right ADI LOW DO; Liza coe (Verified) [id number] ORIGINAL EXAMINATION: RIGHT GROIN ULTRASOUND 03/03/2025 TECHNIQUE: Linear real-time and Doppler evaluation of the symptomatic right groin performed. COMPARISON: None HISTORY: ORDERING SYSTEM PROVIDED HISTORY: Reason for Exam: INGUINAL HERNIA RIGHT FINDINGS: Normal appearing lymph node measuring 1.6 x 0.6 x 0.5 cm with normal cortical thickness noted in the right groin. There is no pathologic lymphadenopathy, fluid collection, lipoma, or hernia observed. IMPRESSION: Normal right groin lymph node. Interpreted by: Adi Low DO Preliminary Report By: Adi Low DO Electronically signed By Adi Low DO Dictated Date: 03/03/2025 3:31:34 PM Prelim Date: 03/03/2025 3:33:16 PM Sign Date: 03/03/2025 3:33:16 PM Ordering Provider: JAKY CHAVEZ [facility] Evaluation note 02-24-2025 Note Date & Type Note Facility 02-24-2025 Evaluation note Diagnosis Onset Date Resolution Right groin pain acute February 24, 2025 1:46pm [facility] Work Phone: Radiology Diagnostic study note 12-20-2024 Note Date & Type Note Facility 12-20-2024 Radiology Diagnostic study note [facility] Imaging Services [address] [place] [address] L/S Spine w Bend Min 6 Vw MR#: [id number] Acct: [id number] Name: JAKY LEW Rep #: [id number] : 1965 M 59 From: Renay Howard MD PCP: Dr. Jaky Chavez MD Status: REG CLI Study:L/S Spine w Bend Min 6 Vw Date of Exam: 12/20/24 Exam# [id number] Ordering Dr: Vicky Chavez MD EXAM: XR Lumbosacral Spine, 4 or 5 Views CLINICAL INDICATION: TECHNIQUE: Frontal, lateral and bilateral oblique views of the lumbar spine. COMPARISON: No relevant prior studies available. FINDINGS: VERTEBRAE: Mild facet arthropathy of L4-S1. No acute fracture. Normal alignment. SACRUM/COCCYX: Unremarkable as visualized. No acute fracture. DISC SPACES: No acute findings. No significant narrowing. SOFT TISSUES: Unremarkable. RAD/L/S Spine w Bend Min 6 Vw IMPRESSION: No acute findings in the lumbar spine. Reading Location: [facility] CC: Dr. Jaky Chavez MD ~ Conveyor Attendant: Signed [facility] Evaluation + Plan note Note Date & Type Note Facility Evaluation + Plan note No data available for this section [facility] Evaluation note Note Date & Type Note Facility Evaluation note No assessment information availa [facility] Work Phone: Hospital Discharge instructions Note Date & Type Note Facility Hospital Discharge instructions No data available for this section [facility] Hospital Discharge instructions Note Date & Type Note Facility Hospital Discharge instructions Additional Instructions Follow-up with Dr. Cadet, return for any worsening symptoms. [facility] Work Phone: Progress note Note Date & Type Note Facility Progress note No data available for this section [facility] Reason for referral (narrative) Note Date & Type Note Facility Reason for referral (narrative) No reason for referral information available [facility] Work Phone: Chief Complaint and Reason for Visit Chief Complaint LEFT KNEE Chief Complaint Admit Date pain and R leg weakness. December 20, 2024 11:38am Chief Complaint Admit Date pain and R leg weakness. December 20, 2024 11:38am INGUINAL HERNIA February 24, 2025 1:46pm other pain March 04, 2025 2:32p m Reason for Visit Admit Date Right groin pain February 24, 2025 1:46pm Advance Directives No Advanced Directives Records Found Advance Directive Response Recorded Date/ Time Living Will Yes February 14, 2018 6:27pm Power of Filament Maker Yes February 14 6:27pm Advance Directive Response Recorded Date/ Time Living Will Yes February 14, 2018 5:27pm Power of Filament Maker Yes February 14 5:27pm Advance Directive Response Recorded Date/ Time Do you have a Healthcare Power of Filament Maker? No March 04, 2025 2:44pm Summary Purpose Family History No Family History Records Found Additional Source Comments Goals (unrecognized section and content) Goals may be documented in a n alternate sectionGoals may be documented in an alternate sectionGoals may be documented in an alternate section No data available for this sectionGoals may be documented in an alternate section Care Teams (unrecognized sec tion and content) Team Status: Active Member Role Status Dates Dr. Jaky Chavez MD Family Provider Active Dr. Jaky Chavez MD Primary Care Provider Acti ve Team Status: Inactive Member Role Status Dates Dr. Jaky Chavez MD Primary Care Provider Acti ve Start: December 20, 2024 End: December 20, 2024 Dr. Jaky Chavez MD Attending Provider Active Start: December 20, 2024 End: December 20, 2024 Dr. Jaky Chavez MD Referring Provider Active Start: December 20, 2024 End: December 20, 2024 Team Status: Active Member Role Status Dates Dr. Jaky Chavez MD Primary Care Provider Acti ve Team Status: Inactive Member Role Status Dates Dr. Jaky Chavez MD Primary Care Provider Acti ve Start: February 24, 2025 End: February 24, 2025 Dr. Jaky Chavez MD Referring Provider Active Start: February 24, 2025 End: February 24, 2025 Dr. Rojas Cadet MD Attending Provider Active Start: February 24, 2025 End: February 24, 2025 Team Status: Inactive Member Role Status Dates Dr. Jaky Chavez MD Primary Care Provider Acti ve Start: March 04, 2025 End: March 04, 2025 Dr. León Howard DO Referring Provider Active Start : March 04, 2025 End: March 04, 2025 Dr. León Howard DO Emergency Provider Active Start : March 04, 2025 End: March 04, 2025 (unrecognized sect ion and content) No Status Records FoundNo Status Records Found INFORMATION SOURCE (unrecogn ized section and content) DATE CREATED AUTHOR 03/05/2025 [facility] DATE CREATED AUTHOR AUTHOR'S ORGANIZ ATION 04/03/2025 [facility] FOR RECORDS PERTAINING TO PATIENTS WHO ARE OR HAVE BEEN ENROLLED IN A CHEMICAL DEPENDENCY/SUBSTANCEABUSE PROGRAM, SOME INFORMATION MAY BE OMITTED. This clinical summary was aggregated from multiple sources. Caution should be exercised in using it in the provision of clinical care. This summary normalizes information from multiple sources, and as a consequence, information in this document may materially change the coding, format and clinical context of patient data. In addition, data may be omitted in some cases. CLINICAL DECISIONS SHOULD BE BASED ON THE PRIMARY CLINICAL RECORDS. [employer] provides no warranty or guarantee of the accuracy or completeness of information in this document.
[2025-04-03] MEDS: Lactated Ringers 1,000 ML 15 ML IV (06:48)
--- NOTE | 2025-04-03 06:58 | HP.PCM_ITS ---
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: No Accompanied by: Is patient in pain?: No Allergies bee venom protein (honey bee) Allergy (Verified 03/10/25 13:51) Shortness of breathpollen extracts Allergy (Verified 03/10/25 13:51) Rash Medications ?Medication ?Instructions ?Recorded ?Confirmed ?Type quetiapine 150 mg tablet,extended 150 mg PO QHS 02/14/18 03/10/25 History release 24 hr (Seroquel XR) sertraline 100 mg tablet 100 mg PO DAILY 02/14/18 03/10/25 Histor y fexofenadine 60 mg-pseudoephedrine 1 tab PO Q12H PRN 02/24/25 03/10/25 Hist ory ER 120 mg tablet,ext.release,12 hr (Anum-D 12 Hour) lisinopril 10 mg tablet 10 mg PO QDAY 02/24/25 03/10/25 History omeprazole 20 mg capsule,delayed 20 mg PO QDAY 02/24/25 03/10/25 History release Have you fallen in the past year?: No PFSH Medical History (Updated 03/10/25 @ 13:50 by Ally Ordonez) Cholelithiasis Umbilical hernia Bilateral inguinal hernia Right groin pain Allergies HTN (hypertension) GERD (gastroesophageal reflux disease) Depression Surgical History S/P vasectomy Social History Smoking Status: Never smoker alcohol intake: current HPI HPI HPI: The patient was recently in the emergency room and had a CT scan performed which showed bilateral inguinal hernias. Patient is still having trouble getting in and out of his car and tying his shoes due to pain ROS General General: No weight change, appetite, fatigue, colon cancer, breast cancer or weakness HEENT HEENT: No difficulty swallowing, eye injury, eye surgery, swollen glands or hoarseness Endo Endocrine: No thyroid disease, diabetes mellitus, thyroid cancer, Hair loss, heat intolerance or cold intolerance Skin Skin: No rash or changing moles Breast Breast: No left breast lump, right breast lump, nipple discharge, breast pain, abnormal mammogram, abnormal US or breast enlargement Musc Musculoskeletal: Yes arthritis; No back problems, rheumatoid arthritis, gout or joint pain Cardio Cardiovascular: No murmur, pacemaker, heart disease, atrial fibrillation, high blood pressure, heart attack, heart stent, palpitations, shortness of breath with exertion or chest pain Psych Psychiatric: Yes anxiety; No depression or hearing voices Resp Respiratory: No shortness of breath, No sleep apnea, No cough, No COPD, No asthma, No emphysema and No wheezing Gastro Gastrointestinal: No abdominal pain, No nausea or vomiting, No diarrhea, No constipation, No blood in stool, No acid reflux, No hemorrhoids, No ulcers, No gallbladder problem and No black,tarry stools [place] Hematologic: No blood thinners, No blood disorders, No bleeding, No anemia and No blood clots Neuro Neurologic: No system reviewed and no additional complaints, except as documented, No as per HPI, No abnormal gait, No abnormal hearing, No abnormal movements, No abnormal speech, No behavioral changes, No burning sensations, No confusion, No convulsions, No disequilibrium, No dizziness, No localized weakness, No frequent falls, No headache(s), No lack of coordination, No loss of vision, No memory loss, No numbness, No other visual disturbances, No radicular pain, No restless legs, No sensory deficit, No syncope, No tingling, No tremor(s), No weakness and No other Exam Const General: cooperative Orientation: alert and oriented x3 [facility] Head: normal to inspection Neck Neck: normal visual inspection and full ROM Chest Chest palpation & inspection: normal inspection of the chest Resp Effort & Inspection: normal respiratory effort Auscultation: clear to auscultation bilaterally Cardio Rate: regular rate Rhythm: regular rhythm GI Inspection: non-distended Palpation: soft and nontender Skin General: no rashes or lesions noted Neuro General: patient alert and patient oriented x3 Extrem General: full ROM Psych Appearance: grossly normal Mental Status: mental status grossly normal Assessment and Plan Assessment and Plan (1) Bilateral inguinal hernia: Status: Acute Plan: The patient has bilateral inguinal hernias on CT scan. He also had an umbilical hernia and a hiatal hernia which he did not want to address. He wants his inguinal hernias repaired. I discussed robotic assisted laparoscopic inguinal hernia repair with mesh. I also discussed the possibility that these may be lipomas. I discussed the procedure in detail as well as the risks including but not limited to bleeding, infection, injury to other organs such as the testicle, blood supply to the testicle, bowel, bladder. Patient understands the risks and is willing to proceed. Rojas Cadet MD Pager: [facility] [address] [place] [address], [address] [place] [address] Office: I have examined the patient and the H&P has been reviewed. There are no clinical changes since date of exam.
--- NOTE | 2025-04-03 07:23 | PCM.PRE.AN2 ---
ASA Classification* ASA Classification ASA Classification: 3 Assessment & Plan Anesthesia* Anesthesia Assessment Anesthesia Assessment: Discussed sedation and/or anesthesia options, risks, benefits, and alternatives with patient/parents/legal guardian/POA. Questions invited. The patient/parents/legal guardian/POA seems to understand and agrees to proceed with anesthesia plan. Reviewed the physical assessment, medical history, allergy history and patient home medications list prior to surgery/procedure/anesthetic and documented any changes. Performed airway and anesthesia risk assessments. Anesthesia Type Anesthesia Type: General (Consider [place] scope intubation.) History Source History Obtained from:: Patient and Chart Anesthesia Focused Assessment* Temperature: 97.6 F Pulse Rate: 91 Blood Pressure: 133/85 Respiratory Rate: 16 Pulse Ox: 99 Oxygen Delivery Method: Room Air Airway Assessment Mouth opens: >3 cm Mallampati Score: III Teeth Condition: Intact Neck Range of motion (ROM): Limited ROM (Somewhat decreased extension. Consider glidescope) Labs Anesthesia Preop lab: CBC WBC 12.1 K/mm3 (4.4-11.0) H 03/04/25 15:00 03/04/25 RBC 5.17 M/mm3 (4.6-6.2) 03/04/25 15:00 03/04/25 Hgb 15.5 g/dL (13.0-16.5) 03/04/25 15:00 03/04/25 Hct 43.6 % (40-54) 03/04/25 15:00 03/04/25 Plt Count 169 K/mm3 (150-450) 03/04/25 15:00 03/04/25 CHEMISTRY Potassium 4.1 mmol/L (3.3-5.1) 03/04/25 15:00 03/04/25 Sodium 138 mmol/L (133-145) 03/04/25 15:00 03/04/25 BUN 10 mg/dL (4-19) 03/04/25 15:00 03/04/25 Creatinine 1.10 mg/dL (0.70-1.20) 03/04/25 15:00 03/04/25 Glucose 188 mg/dL (70-99) H 03/04/25 15:00 03/04/25 COAG Pre-Assessment Diagnosis/Proposed Procedure Planned Operative Procedure(s): LAP ROBOTIC INGUINAL HERNIA REPAIR BILAT WITH MESH Anesthesia History Anesthesia History - certified energy manager: Anesthesia History - certified energy manager Hx Hospitalization No 03/23/25 16:34 Any Problems With Anesthesia No 03/23/25 16:34 Cholinesterase deficiency No 03/23/25 16:34 You/Your Family Experience No 03/23/25 16:34 fever (hyperthermia) with Relationship Recent Exposure to Contagious No 04/03/25 06:39 Disease Does patient have nerve No 03/23/25 16:34 stimulator Patient instructed to have device shut off --Does patient have Pacemaker No 04/03/25 06:39 or ICD? When Was Last Pacemaker Check QUESTION #4 FULL TEXT: You/Your Family Experience fever (hyperthermia) with Anesthesia Last Oral Intake Last Oral intake: Last Oral Intake NPO since Meds taken in AM with sips of water? Meds patient instructed to take am of surgery Any additional information?: Yes NPO since: 00:00 Meds taken in AM with sips of water?: Yes PONV PONV - certified energy manager: PONV - certified energy manager Female No 03/23/25 16:34 HX of Motion Sickness No 03/23/25 16:34 HX of N/V After Surgery No 03/23/25 16:34 Non-Smoker Yes 03/23/25 16:34 Duration of Surgery greater Yes 03/23/25 16:34 than 60 minutes Number of Risk Factors 2 03/23/25 16:34 PONV Score Moderate Risk 03/23/25 16:34 Height & Weight Height & Weight: Anesthesia: Height & Weight Height 5 ft 7 in 04/03/25 06:39 Weight: 113 kg 04/03/25 06:39 Body Mass Index (BMI) 38.9 04/03/25 06:39 Respiratory Assessment Respiratory Assessment - certified energy manager: Respiratory Tract Infection Hx - certified energy manager Hx Respiratory Tract Infection No 03/23/25 16:34 STOP Sleep Apnea STOP Sleep Apnea - certified energy manager: STOP Sleep Apnea - certified energy manager Hx Hypertension Yes: CONTROLLED WITH MED 03/23/25 16:34 Hx Sleep Apnea Yes 03/23/25 16:34 CPAP Yes 03/23/25 16:34 BIPAP No 03/23/25 16:34 Do you snore loudly (louder than talking or can be heard Do you often feel tired/ fatigued/ sleepy during daytime? Has anyone observed you stop breathing during sleep? STOP Results Positive 03/23/25 16:34 QUESTION #5 FULL TEXT : Do you snore loudly (louder than talking or can be heard through closed doors)? 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 Specify any problems Hx of Preganancy in last 3 N/A 03/23/25 16:34 Months Nurse Filling Out Transfusion DSCHRIBER 03/23/25 16:34 & Questions: Date: 03/23/25 03/23/25 16:34 Time: 16:35 03/23/25 16:34 Patient unable to answer at this time (ie. confused, unrespo /Reproduction History /Reproductive History - certified energy manager: /Reproductive Hx- certified energy manager Hx Now No 03/23/25 16:34 Gestational Age (in weeks): EDC: Hx Hx Para Hx Section SAB No 03/23/25 16:34 Active Medications Active Medications: Current Medications Generic Name Dose Route Start Last Admin Trade Name Freq PRN Reason Stop Dose Admin Cefazolin Sodium 2 gm/ Sodium 110 mls @ 150 mls/hr 04/03/25 07:30 Chloride IV 04/03/25 08:13 INTRAOP ONE Lactated Ringer's 1,000 mls @ 15 mls/hr 04/03/25 06:45 04/03/25 06:48 IV 15 mls/hr .Q48H BROCK Administration PFSH Medical History Wears glasses Alcohol use Arthritis Fatty liver Migraine headache History of hiatal hernia History of ulceration Chewing tobacco dependence CPAP (continuous positive airway pressure) dependence Shortness of breath on exertion Leg cramps History of pain when walking Cholelithiasis Bilateral inguinal hernia Right groin pain HTN (hypertension) GERD (gastroesophageal reflux disease) Depression Home Medications ?Medication ?Instructions ?Recorded ?Last Taken ?Type quetiapine 150 mg tablet,extended 150 mg PO QHS 02/14/18 04/02/25 History release 24 hr (Seroquel XR) sertraline 100 mg tablet 150 mg PO DAILY 02/14/18 04/03/25 History fexofenadine 60 mg-pseudoephedrine 1 tab PO Q12H PRN allergy symptoms 02/24/25 Unknown History ER 120 mg tablet,ext.release,12 hr (Anum-D 12 Hour) lisinopril 10 mg tablet 10 mg PO QDAY 02/24/25 04/02/25 History omeprazole 20 mg capsule,delayed 20 mg PO QDAY 02/24/25 04/03/25 History release Allergy/AdvReac Type Severity Reaction Status Date / Time bee venom protein (honey bee) Allergy Shortness Verified 04/03/25 06:37 of breath pollen extracts Allergy Rash Verified 04/03/25 06:37 Surgical History Hx of colonoscopy S/P vasectomy Social History Smoking Status: Former smoker alcohol intake: current Review of Systems (Anesthesia) ROS Narrative System reviewed and no additional complaints, except as documented.
[2025-04-03] MEDS: Cefazolin 2 GM in 0.9% Normal Saline (100mL Bag) 100 ML IV (07:36)
[2025-04-03] MEDS: Bupivacaine Mpf 0.5% 30 ML VIAL (09:02)
--- NOTE | 2025-04-03 09:09 | OP.PCM_ITS ---
Operative Report (Standard) Operative Information Date of Procedure: 04/03/25 Pre-Operative Diagnosis: Bilateral inguinal hernias Post-Operative Diagnosis: Bilateral inguinal hernias Surgery/Procedure Performed: Robotic assisted bilateral inguinal hernia repair with mesh gifted program teacher: Yes Infant Caregiver: Jason Lopez Tasks completed by list of first job ideas: Opening & closing and Retracting Type of Anesthesia: General/Regional RN Documented Start/Stop Times: Operation Date: 04/03/25 07:30 Case Time Into Pre-Op 04/03/25 06:38 Out of Pre-Op 04/03/25 07:26 Anesthesia Start 04/03/25 07:36 Into Room 04/03/25 07:36 Procedure Start 04/03/25 07:55 Procedure Start Time: 07:55 Procedure Stop Time: 09:15 Select all DRAINS/GRAFTS/IMPLANTS that apply: Implanted device Implanted device details: ProGrip mesh bilaterally Estimated Blood Loss: 10 Specimen collected: No Description of surgery: Patient was brought back to surgery and general anesthesia was induced. The abdomen was prepped and draped in usual sterile fashion. A midline incision was made superior to the umbilicus and deepened to the fascia which was grasped and elevated. A Veress needle was placed into the abdomen and a drop test was performed. The abdomen is insufflated 15 mmHg and the Veress needle was removed. Port was placed into the abdomen and it was inspected with camera to make sure there are no injuries and there were none. Next under direct visualization an 8 mm port was placed in the right lateral abdomen as well as the left lateral abdomen and then the robot was docked. The patient had bulging in both groins and on CT scan it appeared to be originating from the retroperitoneum. The peritoneum in the right lower quadrant was incised using electrocautery scissors. Dissection was carried inferiorly until the hernia was identified. The fat contained within the hernia was reduced and placed back into the retroperitoneum. Next ProGrip mesh was placed over the hernia defect. The peritoneum was then reapproximated incorporating the retroperitoneal fat using a 3 OV lock suture. Next attention was paid to the left side. In the same fashion electrocautery scissors were used to make an incision in the peritoneum. Dissection was carried inferiorly and another hernia was identified containing retroperitoneal fat. The retroperitoneal fat was reduced from the hernia and then ProGrip mesh was placed over the hernia defect. The peritoneum was reapproximated using a running 3 oh V-Loc suture incorporating the retroperitoneal fat and the repair. Next the instruments were removed from the abdomen and it was allowed to desufflate. The ports were removed. The incisions were injected with local anesthetic and closed with interrupted 4-0 Monocryl sutures. Steri-Strips and bandages were applied. Scrotum was checked again of the case and contain both testicles. Patient was taken to PACU in stable condition. Surgical Findings: Bilateral retroperitoneal inguinal hernias Complications Complications: No Admit VTE Documentation VTE Mechan Device Prophylaxis: SCD's
--- NOTE | 2025-04-03 09:14 | DCINST_ITS ---
Discharge Instructions Procedure Hernia Diet Discharge Diet: Light diet - advance as tolerated Activity Discharge Activity: May Not Drive (for 2-3 days or while taking narcotic pain meds.) and May Shower (with the bandage in place 1-2 days after surgery.) Lifting Restrictions: 20 pounds for 4 weeks. Additional Activity Instructions:: Climbing stairs is fine, walking is encouraged. Sitting in bed may be uncomfortable. Sitting up using your lateral muscles (sitting up sideways) is usually more comfortable. Do not drive, work heavy equipment of sign legal documents for 24 hours. If your hernia repair was an inguinal repair, you may have scrotal swelling, an ice pack and/or athletic support can provide more comfort. Pain medications may cause nausea, you should typically eat light foods as you take your pain medications. Pain medications may also cause constipation. If you have difficulty with this, discuss with your doctor. Alternate ibuprofen and Tylenol for pain control, oxycodone for breakthrough pain Dressing / Incision Call your doctor if your incision/area has: Continuous Slow Oozing, Sudden Increased Bleeding, Increased Pain/ Swelling, Increased Redness and Foul Smelling Discharge Call your doctor if you observe: Fever of 101 or Higher Suture Line Care: Avoid Pulling/Pushing and Avoid Pinching/Bending Remove Dressing in: 2 days (Remove clear bandages in 2 days, remove Steri-Strips in 7 to 10 days.) Follow Up Care Please Follow Up With: Rojas Cadet MD When: Please call to schedule 2 week follow up appointment. [phone] Test Results: Test results from this visit will be discussed in further detail at your follow- up appointment, if applicable. Discharge Plan Admission Attending Provider: Rojas Cadet Primary Care Provider: Matthew Chavez Instructions Print Language: Sammarinese Discharge Orders/Prescriptions Prescriptions: New oxycodone 5 mg Tablet 5 - 10 mg PO Q4H PRN PRN (Reason: Pain Score 4-10) 5 Days Qty: 14 0RF No Action omeprazole 20 mg capsule,delayed release(DR/EC) 20 mg PO QDAY lisinopril 10 mg tablet 10 mg PO QDAY fexofenadine-pseudoephedrine [Anum-D 12 Hour] 60-120 mg tablet extended release 12 hr 1 tab PO Q12H PRN (Reason: allergy symptoms) sertraline 100 MG tablet 150 mg PO DAILY quetiapine [Seroquel XR] 150 MG tablet extended release 24 hr 150 mg PO QHS Referrals / Follow Up: Matthew Chavez MD [Primary Care Provider] - Disposition Disposition (needs filled in before D/C Order can be placed): Home, Self Care
--- NOTE | 2025-04-03 10:36 | PCM.POST.ANE ---
Anesthesia: Postop Eval I Current Vital Signs Temperature: 97.5 F Pulse Rate: 106 Blood Pressure: 161/97 Respiratory Rate: 16 Pulse Ox: 93 Oxygen Delivery Method: Non-Rebreather Oxygen Flow Rate (L/min): 8 Assessment Airway patent: Yes Spontaneous unlabored respirations: Yes Mental status: Awake and Calm nausea: No Vomiting: No Anesthesia Complication: No Fluid Hydration Crystalloid volume administer (ml): 1,000 Total IV fluid infused: 1,000 Progress Note Anesthesia document: Postop Eval 1 completed: Yes
[2025-04-03] MEDS: Acetaminophen 325 MG Tablet 650 MG PO (11:07)
[2025-04-03] MEDS: oxyCODONE 5 MG Tablet PO (11:49)
--- NOTE | 2025-04-03 12:42 | POSTOPAN2_ITS ---
Anesthesia Postop Eval I Sum Postop Eval Completion status Anesthesia document: Postop Eval 1 completed: Yes Anesthesia Postop Eval I Summary Anesthesia Postop Eval I Summary: Anesthesia Postop Eval I: Assessment Summary Airway patent Yes 04/03/25 10:37 TELEPHOTO [email or web address] Spontaneous unlabored Yes 04/03/25 10:37 TELEPHOTO [email or web address] respirations Mental status Awake,Calm 04/03/25 10:37 TELEPHOTO [email or web address] nausea No 04/03/25 10:37 TELEPHOTO [email or web address] Vomiting No 04/03/25 10:37 TELEPHOTO [email or web address] Anesthesia Postop Eval I: Fluid Summary Crystalloid volume administer 1,000 04/03/25 10:37 TELEPHOTO [email or web address] (ml) Colloids volume administered ( ml) Blood Product volume administered (ml) Total IV fluid infused 1,000 04/03/25 10:37 TELEPHOTO [email or web address] Anesthesia Postop Eval I: Summary Notes Anesthesia Complication No 04/03/25 10:37 TELEPHOTO [email or web address] Anesthesia Complication Comment: Post-operative progress note Anesthesia: Postop Eval II Evaluation Mental status: Awake and Calm Pain Level: 1 nausea: No Vomiting: No Complications Anesthesia Complication: No
--- NOTE | 2025-04-03 12:42 | PCM.POSTANE2 ---
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 Spontaneous unlabored Yes 04/03/25 10:37 AIRCRAFT AVIONICS [email or web address] respirations Mental status Awake,Calm 04/03/25 10:37 AIRCRAFT AVIONICS [email or web address] nausea No 04/03/25 10:37 AIRCRAFT AVIONICS [email or web address] Vomiting No 04/03/25 10:37 AIRCRAFT [email or web address] Anesthesia Postop Eval I: Fluid Summary Crystalloid volume administer 1,000 04/03/25 10:37 AIRCRAFT AVIONICS [email or web address] (ml) Colloids volume administered ( ml) Blood Product volume administered (ml) Total IV fluid infused 1,000 04/03/25 10:37 AIRCRAFT AVIONICS [email or web address] Anesthesia Postop Eval I: Summary Notes Anesthesia Complication No 04/03/25 10:37 AIRCRAFT AVIONICS [email or web address] Anesthesia Complication Comment: Post-operative progress note Anesthesia: Postop Eval II Evaluation Mental status: Awake and Calm Pain Level: 1 nausea: No Vomiting: No Complications Anesthesia Complication: No
== END 2025-04-03 12:02 | disposition home or self-care (01) ==
LOC: SDC 06:08 → AC 06:09
PROVIDERS: PCP Family Medicine; Referring Provider Surgery; Visit Provider Surgery
PROC: (CPT 49650; principal; 2025-04-03 07:10)
DX: K40.20 Bilateral inguinal hernia, without obstruction or gangrene, not specified as recurrent (principal); I10 Essential (primary) hypertension; K21.9 Gastro-esophageal reflux disease without esophagitis; F32.A Depression, unspecified; Z79.899 Other long term (current) drug therapy
CPT/HCPCS: 49650; S2900; 00840; 93005; C1781; J2405